=== PATIENT | male | born 1985 | race Caucasian/White ===

== ENCOUNTER 2017-02-14 13:22 | Emergency (ER) | payer MEDICAID ==
[2017-02-14 13:50] VITALS: BP 116/76
--- NOTE | 2017-02-14 15:22 | EDM.PDOC ---
[id number] 4d PAIN IN THE RIGHT LEG Time Seen by Provider: 02/14/17 13:55 Source: Reports: Patient History Limitations: Reports: Altered mental status (Patient seems manic) - History of Present Illness INITIAL COMMENTS - FREE TEXT/NARRATIVE: 31-year-old male presents with right leg pain. He claims years ago he sustained an injury to his right lower leg, and now has pain radiating up to behind his knee and into his thigh. He has increased his running recently and he thought that maybe be related. He is overly dramatic and talkative. He says he has used a bottle of Tylenol and a bottle of ibuprofen and nothing is helping. He claims his leg is red and swollen although it looks symmetric and normal. Occurred When: other (Supposedly a few years ago) Associated Symptoms: Reports: denies other symptoms Allergies/ADRs: Allergies No Known Allergies Allergy (Verified 02/14/17 13:53) Home Medications: Ambulatory Orders Dextroamphetamine/Amphetamine [Adderall 20 mg Tablet] 20 mg PO BID 02/14/17 [ Confirmed 02/14/17] Past Medical History Gastrointestinal History: Reports: Diverticulosis, GERD Psychiatric History: Reports: ADHD - Past Surgical History GI Surgical History: Reports: Hernia repair/other Social & Family History - Tobacco Use Smoking Status *Q: Current Some Day Smoker Years of Tobacco use: 20 Packs/Tins Daily: 2 - Caffeine Use Caffeine Use: Reports: Coffee, Soda - Recreational Drug Use Recreational Drug Use: No Review of Systems - Review of Systems Review Of Systems: See Below Constitutional: Denies: fever Respiratory: Denies: Shortness of Breath Cardiovascular: Denies: chest pain GI/Abdominal: Denies: Nausea, Vomiting Psychiatric: Reports: other (Patient is supposed to be on chronic amphetamines for his ADHD but has been off for the last 3 months and is going to "start his medicines tomorrow".) Trauma Exam - Physical Exam Exam: See Below Exam Limited By: Altered mental status (Patient is very agitated and having a hard time maintaining a thought process) General Appearance: Reports: alert, anxious Head: Reports: atraumatic Respiratory Exam: Reports: no respiratory distress Extremities: Reports: other (Exam of the lower extremities grossly reveals symmetric color and no acute injury. On palpation of the posterior aspect of the right thigh the patient screamed in pain and almost collapsed. He was significantly out of proportion to any physical disease.) Course - Vital Signs Last Recorded V/S: Last Vital Signs Temp 97.9 F 02/14/17 13:52 Pulse 90 02/14/17 13:52 Resp 15 02/14/17 13:52 BP 116/76 02/14/17 13:52 Pulse Ox 97 02/14/17 13:52 - Re-Assessments/Exams Free Text/Narrative Re-Assessment/Exam: 02/14/17 15:39 I tried to encourage the patient to give us more time and assured him it was not related to his injury several years ago. He started ranting about the dangers of vaccines, that was a dangerous doctor because I could not tell him what was in vaccines and that I wasn't going to help him because I just assumed he was a drug addict. I was straightforward with him and told him he presents as a patient that's either manic or an amphetamines. He said he would give me a drug screen but he "can't give a urine right now". When he started becoming argumentative he seemed to have no leg pain at all. He then demanded a physical therapy referral, so I was getting that arranged when he came out and demanded to leave. However after discharge while he was in the lobby he changed his mind and came in and wanted to give the drug screen to "prove me wrong". When I told him he was discharged and we did not need it anymore he raised his hands and yelled "I was right, Allah!" and left Departure - Departure Time of Disposition: 14:31 Disposition: Home, Self-Care 01 Condition: good Clinical Impression: Leg pain, right Referrals: PCP,None [Primary Care Provider] - Forms: ED Department Discharge Care Plan Goals: Activity as tolerated and recheck in 1 to 2 weeks if not improving
== END 2017-02-14 14:31 | disposition home or self-care (01) ==
LOC: JP.ED 13:22
DX: M79.604 Pain in right leg (principal); F17.210 Nicotine dependence, cigarettes, uncomplicated; K21.9 Gastro-esophageal reflux disease without esophagitis; F90.9 Attention-deficit hyperactivity disorder, unspecified type; Z79.899 Other long term (current) drug therapy
CPT/HCPCS: 99282; 99283

== ENCOUNTER 2017-02-20 14:57 | Emergency (ER) | payer MEDICAID ==
[2017-02-20 15:09] VITALS: BP 133/85
--- NOTE | 2017-02-20 15:26 | EDM.PDOC ---
ED HPI GENERAL MEDICAL PROBLEM - General Chief Complaint: ENT Problem Stated Complaint: RIGHT UPPER AND LOWER TOOTH PAIN Time Seen by Provider: 02/20/17 15:15 Source of Information: Reports: Patient, Family History Limitations: Reports: No Limitations - History of Present Illness INITIAL COMMENTS - FREE TEXT/NARRATIVE: pt is having severe pain in the rt lower gum line. He had a filling faLL OUT AND HE HAS SEVERE PAIN AT THIS TIME. Onset: gradual Duration: Day(s):, Getting worse Location: Reports: face Quality: Reports: Sharp, Stabbing Associated Symptoms: Reports: denies other symptoms - Related Data Allergies Allergy/AdvReac Type Severity Reaction Status Date / Time No Known Allergies Allergy Verified 02/14/17 13:53 Home Meds: Home Meds Dextroamphetamine/Amphetamine [Adderall 20 mg Tablet] 20 mg PO BID 02/14/17 [ History] Past Medical History Gastrointestinal History: Reports: Diverticulosis, GERD Psychiatric History: Reports: ADHD - Past Surgical History GI Surgical History: Reports: Hernia repair/other Social & Family History - Tobacco Use Smoking Status *Q: Current Some Day Smoker Years of Tobacco use: 20 Packs/Tins Daily: 2 - Caffeine Use Caffeine Use: Reports: Coffee, Soda - Recreational Drug Use Recreational Drug Use: No ED ROS ENT - Review of Systems Review Of Systems: See Below Constitutional: Reports: No Symptoms HEENT: Reports: Dental Pain Respiratory: Reports: No Symptoms Cardiovascular: Reports: No Symptoms Endocrine: Reports: No Symptoms GI/Abdominal: Reports: No Symptoms : Reports: No Symptoms ED EXAM, ENT - Physical Exam Exam: See Below Text/Narrative:: pT ARRIVED WI SEVERE AIXA RT LOWER GUM LINE. TH Exam Limited By: No Limitations General Appearance: Alert, Moderate Distress Ears: Normal TMs Nose: Normal Inspection Mouth/Throat: Other (pt has some very carious back teeth the wose appears to be the rt upper. He is having severe pain. ) Head: Atraumatic Neck: Normal Inspection Respiratory/Chest: No Respiratory Distress Course - Vital Signs Last Recorded V/S: Last Vital Signs Temp 36.7 C 02/20/17 15:08 Pulse 82 02/20/17 15:08 Resp 20 02/20/17 15:08 BP 133/85 02/20/17 15:08 Pulse Ox - Re-Assessments/Exams Free Text/Narrative Re-Assessment/Exam: 02/20/17 15:29 pt was given torodol 60mg im, He will have a dental referal. Departure - Departure Time of Disposition: 15:30 Disposition: Home, Self-Care 01 Condition: fair Clinical Impression: Pain, dental - Discharge Information Forms: ED Department Discharge Care Plan Goals: amoxicillin 500mg tid, motrin 600mg tid, norco 5/325 q6h prn for pain, dental referal for tomorrow.
[2017-02-20] MEDS ORDERED: Ketorolac 60 MG/2 ML SDV IM ONE (15:28)
== END 2017-02-20 15:42 | disposition home or self-care (01) ==
LOC: JP.ED 14:57
DX: K08.89 Other specified disorders of teeth and supporting structures (principal); K21.9 Gastro-esophageal reflux disease without esophagitis; F90.9 Attention-deficit hyperactivity disorder, unspecified type; F17.210 Nicotine dependence, cigarettes, uncomplicated
CPT/HCPCS: 96372; 99283; J1885

== ENCOUNTER 2017-10-24 14:26 | Emergency (ER) | payer MEDICAID ==
[2017-10-24 15:05] VITALS: BP 126/81
--- NOTE | 2017-10-24 15:39 | EDM.PDOC ---
ED HPI GENERAL MEDICAL PROBLEM - General Chief Complaint: Skin Complaint Stated Complaint: RASH Time Seen by Provider: 10/24/17 15:34 Source of Information: Reports: Patient History Limitations: Reports: No Limitations - History of Present Illness INITIAL COMMENTS - FREE TEXT/NARRATIVE: pt arrived with a rash on his rt side. He describes a burning pain connected to this. Several days ago he had sores in his mouth and They looked like canker sores. He has been off the lamictal for 1 week. H thought at first this could b a reaction to the lamictal. Onset: Gradual Duration: Day(s): Location: Reports: Face, Abdomen Associated Symptoms: Reports: Other (pt has pain on the rt side. ) denies Pain Score (Numeric/FACES): 0 - Related Data Allergies Allergy/AdvReac Type Severity Reaction Status Date / Time No Known Allergies Allergy Verified 10/24/17 15:16 Home Meds: Home Meds Dextroamphetamine/Amphetamine [Adderall 20 mg Tablet] 30 mg PO BID 02/14/17 [ History] Past Medical History Gastrointestinal History: Reports: Other (See Below) Other Gastrointestinal History: pyloric stenosis,diverticulitis Genitourinary History: Reports: Renal Calculus Psychiatric History: Reports: ADHD, Bipolar Dermatologic History: Reports: Psoriasis - Past Surgical History GI Surgical History: Reports: Hernia Repair/Other Male Surgical History: Reports: Kidney Stone Extraction Social & Family History - Tobacco Use Smoking Status *Q: Current Every Day Smoker Years of Tobacco use: 20 Packs/Tins Daily: 0.5 - Caffeine Use Caffeine Use: Reports: Coffee, Soda - Recreational Drug Use Recreational Drug Use: No ED ROS GENERAL - Review of Systems Review Of Systems: See Below Constitutional: Reports: No Symptoms HEENT: Reports: Other ( earlier pt had sores in the mouth. ) Respiratory: Reports: No Symptoms Cardiovascular: Reports: No Symptoms Endocrine: Reports: No Symptoms GI/Abdominal: Reports: No Symptoms : Reports: No Symptoms Musculoskeletal: Reports: No Symptoms Skin: Reports: Rash, Other ( There is slight blistering on the rt side. ) Neurological: Reports: No Symptoms ED EXAM, SKIN/RASH Exam: See Below Text/Narrative:: pt arrived with a rash on his rt side. He states he has burning pain. Exam Limited By: No Limitations General Appearance: Alert, Anxious, Mild Distress Ears: Normal TMs Nose: Normal Inspection Throat/Mouth: Normal Inspection Head: Atraumatic Neck: Normal Inspection Respiratory/Chest: No Respiratory Distress Cardiovascular: Regular Rate, Rhythm GI/Abdominal: Soft, Non-Tender Extremities: Normal Inspection Skin: Other ( veciular rash on the rt side. He earlier had sores in his mouth that looked like canker sores. ) Course - Vital Signs Last Recorded V/S: Last Vital Signs Temp 36.5 C 10/24/17 15:04 Pulse 84 10/24/17 15:04 Resp 16 10/24/17 15:04 BP 126/81 10/24/17 15:04 Pulse Ox 98 10/24/17 15:04 - Orders/Labs/Meds Labs: Laboratory Tests 10/24/17 10/24/17 Range/Units 15:23 15:23 WBC 9.9 (4.5-11.0) K/uL RBC 5.21 (4.30-5.90) M/uL Hgb 15.9 H (12.0-15.0) g/dL Hct 44.7 (40.0-54.0) % MCV 86 (80-98) fL MCH 31 (27-31) pg MCHC 36 (32-36) % Plt Count 232 (150-400) K/uL Neut % (Auto) 68 H (36-66) % Lymph % (Auto) 23 L (24-44) % Amador % (Auto) 7 H (2-6) % Eos % (Auto) 1 L (2-4) % Baso % (Auto) 0 (0-1) % Sodium 141 (140-148) mmol/L Potassium 4.0 (3.6-5.2) mmol/L Chloride 104 (100-108) mmol/L Carbon Dioxide 27 (21-32) mmol/L Anion Gap 10.3 (5.0-14.0) mmol/L BUN 11 (7-18) mg/dL Creatinine 0.9 (0.8-1.3) mg/dL Est Cr Clr Drug Dosing 122.79 mL/min Estimated GFR (MDRD) > 60 (>60) Glucose 92 (74-106) mg/dL Calcium 8.6 (8.5-10.1) mg/dL Total Bilirubin 0.4 (0.2-1.0) mg/dL AST 17 (15-37) U/L ALT 24 (12-78) U/L Alkaline Phosphatase 68 (46-116) U/L Total Protein 7.0 (6.4-8.2) g/dL Albumin 4.0 (3.4-5.0) g/dL Globulin 3.0 (2.3-3.5) g/dL Albumin/Globulin Ratio 1.3 (1.2-2.2) - Re-Assessments/Exams Free Text/Narrative Re-Assessment/Exam: 10/24/17 15:41 wbc is not elevated This certainly could be a viral rash and the sores in the mouth and the rash on the side could be connected. He has been off of lamictal for 1 week so I do not think it is connected. Departure - Departure Time of Disposition: 16:04 Disposition: Home, Self-Care 01 Condition: Fair Clinical Impression: Shingles rash - Discharge Information Referrals: PCP,None [Primary Care Provider] - Forms: ED Department Discharge Care Plan Goals: zovirax 400mg tid for 5 days. hold the lamictal cont to use benadryl for iritation
== END 2017-10-24 16:19 | disposition home or self-care (01) ==
LOC: JP.ED 14:26
DX: B02.9 Zoster without complications (principal); F17.210 Nicotine dependence, cigarettes, uncomplicated
CPT/HCPCS: 36415; 80053; 85025; 99283

== ENCOUNTER 2017-10-26 18:58 | Emergency (ER) | payer MEDICAID ==
[2017-10-26] MEDS ORDERED: Bacitracin Oint 1 GM U/D Packet TOP ONE (19:20)
[2017-10-26 19:30] VITALS: BP 133/87
--- NOTE | 2017-10-26 19:36 | EDM.PDOC ---
ED HPI GENERAL MEDICAL PROBLEM - General Chief Complaint: Laceration Stated Complaint: CAT ATTACKED PT/LT ARM Time Seen by Provider: 10/26/17 19:10 Source of Information: Reports: Patient History Limitations: Reports: No Limitations - History of Present Illness INITIAL COMMENTS - FREE TEXT/NARRATIVE: Patient was cut on the left arm along with superficial scratches from a cat. He has a laceration across the flexor surface of the left forearm that needs repair. Onset: Today Duration: Hour(s): - Related Data Allergies Allergy/AdvReac Type Severity Reaction Status Date / Time clotrimazole [From Lotrimin] Allergy Mouth Sores Verified 10/26/17 19:16 Home Meds: Home Meds Dextroamphetamine/Amphetamine [Adderall 20 mg Tablet] 30 mg PO BID 02/14/17 [ History] Acyclovir [Zovirax] 10/26/17 [History] Past Medical History Gastrointestinal History: Reports: Other (See Below) Other Gastrointestinal History: pyloric stenosis,diverticulitis Genitourinary History: Reports: Renal Calculus Psychiatric History: Reports: ADHD, Bipolar Dermatologic History: Reports: Psoriasis - Past Surgical History GI Surgical History: Reports: Hernia Repair/Other Male Surgical History: Reports: Kidney Stone Extraction Social & Family History - Tobacco Use Smoking Status *Q: Current Every Day Smoker Years of Tobacco use: 20 Packs/Tins Daily: 1 - Caffeine Use Caffeine Use: Reports: Coffee, Soda - Recreational Drug Use Recreational Drug Use: No ED ROS GENERAL - Review of Systems Review Of Systems: See Below (Within the last hour) Constitutional: Denies: Fever, Chills Respiratory: Denies: Shortness of Breath GI/Abdominal: Denies: Abdominal Pain Skin: Reports: Other (Patient is currently being treated for a viral skin eruption) ED EXAM, SKIN/RASH Exam: See Below Exam Limited By: No Limitations General Appearance: Alert, No Apparent Distress Respiratory/Chest: No Respiratory Distress Extremities: Other (Exam is otherwise limited to the left arm. The patient has several superficial scratches on the flexor surface of the arm, and a transverse 4 cm laceration that extends into the subcutaneous tissue.) Course - Vital Signs Last Recorded V/S: Last Vital Signs Temp 97.3 F 10/26/17 19:28 Pulse 93 10/26/17 19:28 Resp 12 01/14/18 19:28 BP 133/87 10/26/17 19:28 Pulse Ox 95 10/26/17 19:28 - Orders/Labs/Meds Meds: Medications Discontinued Medications Generic Name Dose Route Start Last Admin Trade Name Tavares PRN Reason Stop Dose Admin Bacitracin 1 dose 10/26/17 19:20 10/26/17 19:37 Bacitracin Oint 1 Gm TOP 10/26/17 19:21 1 dose ONETIME ONE Administration Lidocaine HCl 5 ml 10/26/17 19:20 10/26/17 19:37 Xylocaine-Mpf 1% INJECT 10/26/17 19:21 5 ml ONETIME ONE Administration - Re-Assessments/Exams Free Text/Narrative Re-Assessment/Exam: 10/26/17 19:47 The laceration was cleansed thoroughly with saline and Hibiclens, infiltrated with 1% lidocaine and 6 4-0 Ethilon sutures were used to close the laceration. These can be removed in 7 days. Patient was placed on Augmentin twice daily until sutures are removed. Departure - Departure Time of Disposition: 20:58 Disposition: Home, Self-Care 01 Condition: Good Clinical Impression: Laceration of arm Qualifiers: Encounter type: initial encounter Laterality: left Qualified Code(s): S41.112A - Laceration without foreign body of left upper arm, initial encounter - Discharge Information Instructions: Laceration Care, Adult, [id number] Referrals: PCP,None [Primary Care Provider] - Forms: ED Department Discharge Care Plan Goals: Keep wounds covered and clean while healing. Sutures can be removed in 8 days. Take antibiotic twice daily as prescribed until sutures are removed, and return sooner if concerns of infection or not healing satisfactorily.
== END 2017-10-26 20:59 | disposition home or self-care (01) ==
LOC: JP.ED 18:58
DX: S41.112A Laceration without foreign body of left upper arm, initial encounter (principal); Z88.8 Allergy status to other drugs, medicaments and biological substances; F17.210 Nicotine dependence, cigarettes, uncomplicated; W55.03XA Scratched by cat, initial encounter
CPT/HCPCS: 12002; 99282-25; 99283-25

== ENCOUNTER 2017-11-05 23:46 | Emergency (ER) | payer MEDICAID ==
[2017-11-05] MEDS ORDERED: Sodium Chloride 0.9% 10 ML Syringe FLUSH PRN (23:57)
[2017-11-06] MEDS ORDERED: hydrOXYzine HCl 25 MG Tab PO ONE (00:06)
--- NOTE | 2017-11-06 00:07 | EDM.PDOC ---
ED HPI GENERAL MEDICAL PROBLEM - General Chief Complaint: Neuro Symptoms/Deficits Stated Complaint: MEDICAL [facility]IA [facility] Time Seen by Provider: 11/05/17 23:50 Source of Information: Reports: Patient, EMS History Limitations: Reports: No Limitations - History of Present Illness INITIAL COMMENTS - FREE TEXT/NARRATIVE: 31 yo male presents via EMS after a witnessed seizure of about 1 minute duration. The witnesses did not come to the ER. There was no tongue biting or urinary incontinence. Robby recalls before the seizure having some double vision , dizziness, and felt hot-like he was having "hot flashes". Says he has never been tx'd with seizure meds, but thinks he had a couple prior seizures at age 6 and 10 yrs of age. His sister has epilepsy and is on meds. He has had minor head injuries in the past, but has never had one severe enough to require hospitalization. He denies alcohol use. Recently stopped oxcarbazepine(not taking for seizure prevention) due to an itchy rash that he has been dealing with for several days. Also takes a prescription amphetamine. Has ADD and ? bipolar depression. Now in the ER just feels warm. If he was post-ictal, it was resolved by the time EMS arrived. Has not been having any trouble with sleeping lately. Onset: Today, Sudden Onset Date: 11/05/17 Onset Time: 23:00 Duration: Minutes: (one minute per bystanders) Location: Reports: Generalized Quality: Reports: Other (tonic clonic) Severity: Moderate Improves with: Reports: Other (? time) Worsens with: Reports: Other (? stopping oxcarbazepine) Context: Reports: Other (thinks he had seizures yrs ago, FHx of epilepsy) Associated Symptoms: Reports: Seizure, Other (feels hot, double vision, dizzy. ) Treatments LAP REGULATOR: Reports: IV/IO, Other (see below) (none) Neck Pain Score (Numeric/FACES): 3 - Related Data Allergies Allergy/AdvReac Type Severity Reaction Status Date / Time clotrimazole [From Lotrimin] Allergy Mouth Sores Verified 10/26/17 19:16 Home Meds: Home Meds Dextroamphetamine/Amphetamine [Adderall 20 mg Tablet] 30 mg PO BID 02/14/17 [ History] Acyclovir [Zovirax] 01/14/18 [History] Past Medical History Gastrointestinal History: Reports: Other (See Below) Other Gastrointestinal History: pyloric stenosis,diverticulitis Genitourinary History: Reports: Renal Calculus Neurological History: Reports: Head Trauma, Seizure Psychiatric History: Reports: ADHD, Bipolar Dermatologic History: Reports: Psoriasis - Past Surgical History GI Surgical History: Reports: Hernia Repair/Other Male Surgical History: Reports: Kidney Stone Extraction Social & Family History - Tobacco Use Smoking Status *Q: Current Every Day Smoker Years of Tobacco use: 20 Packs/Tins Daily: 1 - Caffeine Use Caffeine Use: Reports: Coffee, Soda - Recreational Drug Use Recreational Drug Use: No ED ROS GENERAL - Review of Systems Review Of Systems: See Below Constitutional: Reports: No Symptoms HEENT: Reports: Vision Change (double vision intermittently) Respiratory: Reports: No Symptoms Cardiovascular: Reports: No Symptoms Endocrine: Reports: No Symptoms GI/Abdominal: Reports: No Symptoms : Reports: No Symptoms Musculoskeletal: Reports: No Symptoms Skin: Reports: Pruritis, Rash (for roughly a week, itchy, in patches in various locations on his body.) Neurological: Reports: Dizziness, Seizure Psychiatric: Reports: Other (Hx of ADD and ? bipolar ) - Physical Exam Exam: See Below Exam Limited By: No Limitations General Appearance: Alert, WD/WN, No Apparent Distress Eye Exam: Bilateral Eye: EOMI, Normal Inspection, PERRL Ears: Normal External Exam, Normal Canal, Hearing Grossly Normal, Normal TMs Nose: Normal Inspection, Normal Mucosa, No Blood Throat/Mouth: Normal Inspection, Normal Lips, Normal Oropharynx, Normal Voice, No Airway Compromise. No: Evidence of Tongue Biting Head Exam: Atraumatic, Normocephalic Neck: Normal Inspection Respiratory/Chest: No Respiratory Distress, Lungs Clear, Normal Breath Sounds, No Accessory Muscle Use Cardiovascular: Regular Rate, Rhythm, No Edema GI/Abdominal: Normal Bowel Sounds, Soft, Non-Tender, No Distention Neuro Exam (Abbreviated): Alert, Oriented, CN II-XII Intact, Normal Cognition, No Motor/Sensory Deficits Back Exam: Normal Inspection. No: CVA Tenderness (R), CVA Tenderness (L) Extremities: Normal Inspection, Normal Range of Motion, Non-Tender, No Pedal Edema Psychiatric: Normal Affect, Normal Mood Skin Exam: Warm, Dry, Intact, Normal Color, Rash (Scattered patches of a maculopapular rash, one patch is over the upper sacrum. Another on his R arm. ) . No: Diaphoretic, Ecchymosis, Erythema, Jaundice, Mottled, Petechiae, Wound/ Incision, Zoster-Like Rash Course - Vital Signs Text/Narrative:: hydroxyzine 50 mg po for pruritis. Saline lock Last Recorded V/S: Last Vital Signs Temp 36.2 C 11/05/17 23:55 Pulse 77 11/06/17 01:38 Resp 22 H 11/06/17 01:38 BP 122/80 11/06/17 01:38 Pulse Ox 95 11/06/17 01:38 - Orders/Labs/Meds Orders: Active Orders 24 hr Category Date Time Status Head wo Cont [CT] Stat Exams 11/06/17 00:05 Taken Sodium Chloride 0.9% [Saline Flush] Med 11/05/17 23:57 Active 10 ml FLUSH ASDIRECTED PRN Saline Lock Insert [OM.PC] Routine Oth 11/05/17 23:57 Ordered Medication Orders Sodium Chloride (Saline Flush) 10 ml FLUSH ASDIRECTED PRN PRN Reason: Keep Vein Open Labs: Laboratory Tests 11/05/17 11/05/17 11/06/17 Range/Units 23:55 23:59 01:14 WBC 10.3 (4.5-11.0) K/uL RBC 5.14 (4.30-5.90) M/uL Hgb 15.3 H (12.0-15.0) g/dL Hct 45.1 (40.0-54.0) % MCV 88 (80-98) fL MCH 30 (27-31) pg MCHC 34 (32-36) % Plt Count 236 (150-400) K/uL Sodium 144 (140-148) mmol/L Potassium 3.7 (3.6-5.2) mmol/L Chloride 106 (100-108) mmol/L Carbon Dioxide 28 (21-32) mmol/L Anion Gap 9.6 (5.0-14.0) mmol/L BUN 12 (7-18) mg/dL Creatinine 0.9 (0.8-1.3) mg/dL Est Cr Clr Drug Dosing 122.79 mL/min Estimated GFR (MDRD) > 60 (>60) Glucose 101 (74-106) mg/dL Calcium 8.5 (8.5-10.1) mg/dL Total Bilirubin 0.3 (0.2-1.0) mg/dL AST 12 L (15-37) U/L ALT 19 (12-78) U/L Alkaline Phosphatase 59 (46-116) U/L Total Protein 6.3 L (6.4-8.2) g/dL Albumin 3.6 (3.4-5.0) g/dL Globulin 2.7 (2.3-3.5) g/dL Albumin/Globulin Ratio 1.3 (1.2-2.2) Urine Color Yellow Urine Appearance Clear Urine pH 6.0 (4.5-8.0) Ur Specific [place] 1.020 (1.008-1.030) Urine Protein Negative (NEGATIVE) mg/dL Urine Glucose (UA) Normal (NEGATIVE) mg/dL Urine Ketones Negative (NEGATIVE) mg/dL Urine Occult Blood Negative (NEGATIVE) Urine Nitrite Negative (NEGAITVE) Urine Bilirubin Negative (NEGATIVE) Urine Urobilinogen Normal (NORMAL) mg/dL Ur Leukocyte Esterase Negative (NEGATIVE) Urine RBC Not seen (0-5) Urine WBC 0-5 (0-5) Ur Epithelial Cells Not seen Amorphous Sediment Few Urine Bacteria Not seen Urine Mucus Not seen Urine Opiates Screen (NEGATIVE) Ur Oxycodone Screen (NEGATIVE) Urine Methadone Screen (NEGATIVE) Ur Propoxyphene Screen (NEGATIVE) Ur Barbiturates Screen (NEGATIVE) Ur Tricyclics Screen (NEGATIVE) Ur Phencyclidine Scrn (NEGATIVE) Ur Amphetamine Screen (NEGATIVE) U Methamphetamines Scrn (NEGATIVE) Urine MDMA Screen (NEGATIVE) U Benzodiazepines Scrn (NEGATIVE) U Cocaine Metab Screen (NEGATIVE) U Marijuana (THC) Screen (NEGATIVE) 11/06/17 Range/Units 01:14 WBC (4.5-11.0) K/uL RBC (4.30-5.90) M/uL Hgb (12.0-15.0) g/dL Hct (40.0-54.0) % MCV (80-98) fL MCH (27-31) pg MCHC (32-36) % Plt Count (150-400) K/uL Sodium (140-148) mmol/L Potassium (3.6-5.2) mmol/L Chloride (100-108) mmol/L Carbon Dioxide (21-32) mmol/L Anion Gap (5.0-14.0) mmol/L BUN (7-18) mg/dL Creatinine (0.8-1.3) mg/dL Est Cr Clr Drug Dosing mL/min Estimated GFR (MDRD) (>60) Glucose (74-106) mg/dL Calcium (8.5-10.1) mg/dL Total Bilirubin (0.2-1.0) mg/dL AST (15-37) U/L ALT (12-78) U/L Alkaline Phosphatase (46-116) U/L Total Protein (6.4-8.2) g/dL Albumin (3.4-5.0) g/dL Globulin (2.3-3.5) g/dL Albumin/Globulin Ratio (1.2-2.2) Urine Color Urine Appearance Urine pH (4.5-8.0) Ur Specific [place] (1.008-1.030) Urine Protein (NEGATIVE) mg/dL Urine Glucose (UA) (NEGATIVE) mg/dL Urine Ketones (NEGATIVE) mg/dL Urine Occult Blood (NEGATIVE) Urine Nitrite (NEGAITVE) Urine Bilirubin (NEGATIVE) Urine Urobilinogen (NORMAL) mg/dL Ur Leukocyte Esterase (NEGATIVE) Urine RBC (0-5) Urine WBC (0-5) Ur Epithelial Cells Amorphous Sediment Urine Bacteria Urine Mucus Urine Opiates Screen Negative (NEGATIVE) Ur Oxycodone Screen Negative (NEGATIVE) Urine Methadone Screen Negative (NEGATIVE) Ur Propoxyphene Screen Negative (NEGATIVE) Ur Barbiturates Screen Negative (NEGATIVE) Ur Tricyclics Screen Negative (NEGATIVE) Ur Phencyclidine Scrn Negative (NEGATIVE) Ur Amphetamine Screen Positive H (NEGATIVE) U Methamphetamines Scrn Negative (NEGATIVE) Urine MDMA Screen Negative (NEGATIVE) U Benzodiazepines Scrn Negative (NEGATIVE) U Cocaine Metab Screen Negative (NEGATIVE) U Marijuana (THC) Screen Positive H (NEGATIVE) Meds: Medications Generic Name Dose Route Start Last Admin Trade Name Freq PRN Reason Stop Dose Admin Sodium Chloride 10 ml 11/05/17 23:57 Saline Flush FLUSH ASDIRECTED PRN Keep Vein Open Discontinued Medications Generic Name Dose Route Start Last Admin Trade Name Freq PRN Reason Stop Dose Admin Hydroxyzine HCl 50 mg 11/06/17 00:06 11/06/17 00:17 Atarax PO 11/06/17 00:07 50 mg ONETIME ONE Administration - Radiology Interpretation Free Text/Narrative:: Negative head CT scan CT Results Date: 11/06/17 CT Results Time: 01:10 Departure - Departure Time of Disposition: 01:55 Disposition: Home, Self-Care 01 Condition: Fair Clinical Impression: Seizure - Discharge Information Referrals: PCP,None [Primary Care Provider] - Forms: ED Department Discharge - My Orders Last 24 Hours: My Active Orders 11/05/17 23:57 Sodium Chloride 0.9% [Saline Flush] 10 ml FLUSH ASDIRECTED PRN Saline Lock Insert [OM.PC] Routine 11/06/17 00:05 Head wo Cont [CT] Stat - Assessment/Plan Last 24 Hours: My Active Orders 11/05/17 23:57 Sodium Chloride 0.9% [Saline Flush] 10 ml FLUSH ASDIRECTED PRN Saline Lock Insert [OM.PC] Routine 11/06/17 00:05 Head wo Cont [CT] Stat
[2017-11-06 01:39] VITALS: BP 122/80
== END 2017-11-06 02:08 | disposition home or self-care (01) ==
LOC: JP.ED 23:46
DX: R56.9 Unspecified convulsions (principal); F17.210 Nicotine dependence, cigarettes, uncomplicated; Z88.8 Allergy status to other drugs, medicaments and biological substances
CPT/HCPCS: 36415; 70450; 80053; 80305; 81001; 85027; 99284; A9270; 99283

== ENCOUNTER 2017-11-07 12:21 | Emergency (ER) | payer MEDICAID ==
[2017-11-07 12:40] VITALS: BP 136/79
--- NOTE | 2017-11-07 13:17 | EDM.PDOC ---
ED HPI GENERAL MEDICAL PROBLEM - General Chief Complaint: Skin Complaint Stated Complaint: RASH ON BACK AND ARMS Time Seen by Provider: 11/07/17 12:53 Source of Information: Reports: Patient, Old Records, RN Notes Reviewed History Limitations: Reports: No Limitations - History of Present Illness INITIAL COMMENTS - FREE TEXT/NARRATIVE: 31-year-old gentleman presents to the emergency department today complaint of a rash, he was evaluated by his psychiatrist today change of medication Dr. Marina had call me concern of drug eruption possibly related to recent medication change. He has been evaluated by his primary care provider who felt that he had psoriasis also seen by one of the emergency room providers here with the same diagnosis. He did try topical medium potency steroids unfortunately they cause significant pain and burning when he used them in did not complete the course. He has no other complaints other than the rash - Related Data Allergies Allergy/AdvReac Type Severity Reaction Status Date / Time clotrimazole [From Lotrimin] Allergy Mouth Sores Verified 11/07/17 12:40 Home Meds: Home Meds *Depakote 11/07/17 [History] Past Medical History Gastrointestinal History: Reports: Other (See Below) Other Gastrointestinal History: pyloric stenosis,diverticulitis Genitourinary History: Reports: Renal Calculus Neurological History: Reports: Head Trauma, Seizure Psychiatric History: Reports: ADHD, Bipolar Dermatologic History: Reports: Psoriasis - Past Surgical History GI Surgical History: Reports: Hernia Repair/Other Male Surgical History: Reports: Kidney Stone Extraction Social & Family History - Tobacco Use Smoking Status *Q: Heavy Tobacco Smoker Years of Tobacco use: 20 Packs/Tins Daily: 1 - Caffeine Use Caffeine Use: Reports: Coffee, Soda - Recreational Drug Use Recreational Drug Use: No ED ROS GENERAL - Review of Systems Review Of Systems: See Below Constitutional: Reports: No Symptoms Skin: Reports: Rash ED EXAM, SKIN/RASH Exam: See Below Text/Narrative:: Examination of the integument system there are 3 lesions that he's concerned about one on each forearm and one in the middle of his back they are silvery crusted no clear demarcation of the border is irregular slightly erythematous scaly and rough nontender to the touch Exam Limited By: No Limitations General Appearance: Alert, WD/WN, No Apparent Distress Course - Vital Signs Last Recorded V/S: Last Vital Signs Temp 97.1 F 11/07/17 12:38 Pulse 112 H 11/07/17 12:38 Resp 16 11/07/17 12:38 BP 136/79 11/07/17 12:38 Pulse Ox 98 11/07/17 12:38 Departure - Departure Time of Disposition: 13:15 Disposition: Home, Self-Care 01 Condition: Good Clinical Impression: Psoriasis - Discharge Information Referrals: PCP,None [Primary Care Provider] - Additional Instructions: Take full course of steroids, please follow-up with Dr. Diaz in 7-10 days, call return to the emergency department worsening of symptoms - Assessment/Plan Plan: Assessment Acuity = acute Site and laterality = psoriasis Etiology = unclear etiology Manifestations = none Location of injury = Home Lab values = none Plan Because he has had difficulty with the topical steroids in the past will try short course of prednisone 20 mg once a day for 5 days I have him follow-up with his primary care provider next 7-10 days for reevaluation This note was dictated using [employer] voice recognition software please call with any questions on syntax or karen.
== END 2017-11-07 13:45 | disposition home or self-care (01) ==
LOC: JP.ED 12:21
DX: L40.9 Psoriasis, unspecified (principal); F17.210 Nicotine dependence, cigarettes, uncomplicated; F90.9 Attention-deficit hyperactivity disorder, unspecified type; Z88.8 Allergy status to other drugs, medicaments and biological substances
CPT/HCPCS: 99283

== ENCOUNTER 2017-11-29 16:16 | Emergency (ER) | payer MEDICAID ==
[2017-11-29 16:24] VITALS: BP 135/70
[2017-11-29] MEDS ORDERED: LORazepam 1 MG Tab PO ONE (17:38)
--- NOTE | 2017-11-29 17:44 | EDM.PDOCBH ---
ED HPI GENERAL MEDICAL PROBLEM - General Chief Complaint: Behavioral/Psych Stated Complaint: SEIZURES Time Seen by Provider: 11/29/17 17:25 Source of Information: Reports: Patient, Old Records, RN History Limitations: Reports: No Limitations - History of Present Illness INITIAL COMMENTS - FREE TEXT/NARRATIVE: 31 yo male with bipolar depression is currently manic. He is scheduled to go to a psych facility possibly on Friday, but is hoping to get in sooner by coming here today. He is followed already by psychiatry. Mentions some chills at times and a rash. Not sleeping. Having problems with work and at home due to his current issues. Onset: Gradual Duration: Getting Worse, Waxing/Waning Location: Reports: Generalized Quality: Reports: Other (no pain) Severity: Moderate Improves with: Reports: None Worsens with: Reports: Other (? time) Context: Reports: Other (Hx of mental illness) Associated Symptoms: Reports: Fever/Chills (chills only, no fever. ), Rash ( diffuse, non-pruritic), Other (insomnia) Treatments CHANNEL SALES DIRECTOR: Reports: Other (see below) (Usual meds only) - Related Data Allergies Allergy/AdvReac Type Severity Reaction Status Date / Time clotrimazole [From Lotrimin] Allergy Mouth Sores Verified 11/07/17 12:40 Home Meds: Home Meds Amphetamine/Dextroamphetamine [Adderall XR] 2 tab PO DAILY 11/29/17 [History] Divalproex Sodium [Divalproex Sodium ER] 2 tab PO BEDTIME 11/29/17 [History] LORazepam 1 mg PO TID PRN #8 tablet 11/29/17 [Rx] traZODone HCl [Trazodone HCl] 1 tab PO BEDTIME 11/29/17 [History] Past Medical History Gastrointestinal History: Reports: Other (See Below) Other Gastrointestinal History: pyloric stenosis,diverticulitis Genitourinary History: Reports: Renal Calculus Neurological History: Reports: Head Trauma, Seizure Psychiatric History: Reports: ADHD, Bipolar Dermatologic History: Reports: Psoriasis - Past Surgical History GI Surgical History: Reports: Hernia Repair/Other Male Surgical History: Reports: Kidney Stone Extraction Social & Family History - Tobacco Use Smoking Status *Q: Current Every Day Smoker Years of Tobacco use: 20 Packs/Tins Daily: 1 - Caffeine Use Caffeine Use: Reports: Coffee, Soda - Recreational Drug Use Recreational Drug Use: No ED ROS GENERAL - Review of Systems Review Of Systems: See Below Constitutional: Reports: Chills. Denies: Fever HEENT: Reports: No Symptoms Respiratory: Reports: No Symptoms Cardiovascular: Reports: No Symptoms Endocrine: Reports: No Symptoms GI/Abdominal: Reports: No Symptoms : Reports: No Symptoms Musculoskeletal: Reports: No Symptoms Skin: Reports: Rash Neurological: Reports: No Symptoms Psychiatric: Reports: Anxiety, Mood Lability. Denies: Homicidal Ideation, Suicidal Ideation Hematologic/Lymphatic: Reports: No Symptoms ED EXAM, BEHAVIORAL HEALTH - Physical Exam Exam: See Below Exam Limited By: No Limitations General Appearance: Alert, WD/WN, No Apparent Distress, Anxious Eye Exam: Bilateral Eye: PERRL Ears: Normal External Exam, Normal Canal, Hearing Grossly Normal, Normal TMs Nose: Normal Inspection, Normal Mucosa, No Blood Throat/Mouth: Normal Inspection, Normal Lips, Normal Oropharynx, Normal Voice, No Airway Compromise Head: Atraumatic, Normocephalic Neck: Normal Inspection Respiratory/Chest: No Respiratory Distress, Lungs Clear, Normal Breath Sounds, No Accessory Muscle Use Cardiovascular: Regular Rate, Rhythm, No Edema GI/Abdominal: Normal Bowel Sounds, Soft, Non-Tender, No Distention Back Exam: Normal Inspection. No: CVA Tenderness (R), CVA Tenderness (L) Extremities: Normal Inspection, Normal Range of Motion, Non-Tender, No Pedal Edema Neurological: Alert, Normal Mood/Affect, CN II-XII Intact, Normal Cognition, No Motor/Sensory Deficits, Oriented x 3 Psychiatric: Alert, Normal Cognition, Oriented, Restless. No: Suicidal Plan Skin Exam: Warm, Dry, Intact, Normal color, Other (there are a few scattered excoriations, no raised lesions. ) COURSE, BEHAVIORAL HEALTH COMP - Course Vital Signs: Last Vital Signs Temp 36.9 C 11/29/17 16:41 Pulse 90 11/29/17 16:41 Resp 26 H 11/29/17 16:41 BP 135/70 11/29/17 16:41 Pulse Ox 95 11/29/17 16:41 Orders, Labs, Meds: Laboratory Tests 11/29/17 11/29/17 Range/Units 17:50 18:36 WBC 9.3 (4.5-11.0) K/uL RBC 5.59 (4.30-5.90) M/uL Hgb 16.5 H (12.0-15.0) g/dL Hct 48.4 (40.0-54.0) % MCV 87 (80-98) fL MCH 30 (27-31) pg MCHC 34 (32-36) % Plt Count 241 (150-400) K/uL Urine Opiates Screen Negative (NEGATIVE) Ur Oxycodone Screen Negative (NEGATIVE) Urine Methadone Screen Negative (NEGATIVE) Ur Propoxyphene Screen Negative (NEGATIVE) Ur Barbiturates Screen Negative (NEGATIVE) Ur Tricyclics Screen Negative (NEGATIVE) Ur Phencyclidine Scrn Negative (NEGATIVE) Ur Amphetamine Screen Positive H (NEGATIVE) U Methamphetamines Scrn Negative (NEGATIVE) Urine MDMA Screen Negative (NEGATIVE) U Benzodiazepines Scrn Negative (NEGATIVE) U Cocaine Metab Screen Negative (NEGATIVE) U Marijuana (THC) Screen Positive H (NEGATIVE) Medications Discontinued Medications Generic Name Dose Route Start Last Admin Trade Name Freq PRN Reason Stop Dose Admin Lorazepam 1 mg 11/29/17 17:38 11/29/17 18:03 Ativan PO 11/29/17 17:39 1 mg ONETIME ONE Administration Departure - Departure Time of Disposition: 18:52 Disposition: Home, Self-Care 01 Condition: Fair Clinical Impression: Hypomania - Discharge Information Prescriptions: LORazepam 1 mg PO TID PRN #8 tablet PRN Reason: Anxiety Referrals: PCP,None [Primary Care Provider] - Forms: ED Department Discharge
== END 2017-11-29 18:59 | disposition home or self-care (01) ==
LOC: JP.ED 16:16
DX: F30.8 Other manic episodes (principal); F90.9 Attention-deficit hyperactivity disorder, unspecified type; F17.210 Nicotine dependence, cigarettes, uncomplicated; Z88.8 Allergy status to other drugs, medicaments and biological substances; Z79.899 Other long term (current) drug therapy
CPT/HCPCS: 36415; 80305; 85027; 99285; A9270

== ENCOUNTER 2017-12-06 06:54 | Emergency (ER) | payer MEDICAID ==
[2017-12-06 07:20] VITALS: BP 157/87
[2017-12-06] MEDS ORDERED: LORazepam 0.5 MG Tab PO ONE (07:47)
--- NOTE | 2017-12-06 07:47 | EDM.PDOC ---
ED HPI GENERAL MEDICAL PROBLEM - General Chief Complaint: General Stated Complaint: SEIZURE Time Seen by Provider: 12/06/17 07:42 Source of Information: Reports: Patient History Limitations: Reports: No Limitations - History of Present Illness INITIAL COMMENTS - FREE TEXT/NARRATIVE: pt states that he had multiple seizures during the nite. He did not chew his tongue and he did not loose continence. He is concerned about the rash that he has which appears after he showers. He has very little rash at this time. He seemes quite agitated at this time. He states since he was put on the trazadone he has been resting better but he did not sleep last nite because he was having seizures. He does feel more relaxed at this point and thinks he could go home and rest. Onset: Other (He had seizures all nite according to the pt. ) Duration: Hour(s): Location: Reports: Other ( he does develop a total body rash after he takes a shower) Associated Symptoms: Reports: Rash - Related Data Allergies Allergy/AdvReac Type Severity Reaction Status Date / Time clotrimazole [From Lotrimin] Allergy Mouth Sores Verified 12/06/17 07:20 Home Meds: Home Meds Amphetamine/Dextroamphetamine [Adderall XR] 1 tab PO BIDAC 11/29/17 [History] Divalproex Sodium [Divalproex Sodium ER] 2 tab PO BEDTIME 11/29/17 [History] LORazepam 1 mg PO TID PRN #8 tablet 11/29/17 [Rx] traZODone HCl [Trazodone HCl] 1 tab PO BEDTIME 11/29/17 [History] Past Medical History Gastrointestinal History: Reports: Other (See Below) Other Gastrointestinal History: pyloric stenosis,diverticulitis Genitourinary History: Reports: Renal Calculus Neurological History: Reports: Head Trauma, Seizure Psychiatric History: Reports: ADHD, Bipolar Dermatologic History: Reports: Psoriasis - Past Surgical History GI Surgical History: Reports: Hernia Repair/Other Male Surgical History: Reports: Kidney Stone Extraction Social & Family History - Tobacco Use Smoking Status *Q: Unknown Ever Smoked Years of Tobacco use: 20 Packs/Tins Daily: 1 Second Hand Smoke Exposure: No - Caffeine Use Caffeine Use: Reports: Coffee, Soda - Recreational Drug Use Recreational Drug Use: No ED ROS GENERAL - Review of Systems Review Of Systems: See Below Constitutional: Reports: No Symptoms HEENT: Reports: No Symptoms Respiratory: Reports: No Symptoms Cardiovascular: Reports: No Symptoms Endocrine: Reports: No Symptoms GI/Abdominal: Reports: No Symptoms : Reports: No Symptoms Musculoskeletal: Reports: No Symptoms Skin: Reports: Rash, Other ( This appears after showering) Neurological: Reports: Other ( Pt appears very anxious and is talking rapidly) Psychiatric: Reports: Anxiety ED EXAM, GENERAL - Physical Exam Exam: See Below Free Text/Narrative:: PT DID APPEAR AMXIOUS BUT HE STATED HE WAS DEFINITELY bETTER THAN LAST NITE. hE DID HAVE A DEPAKOTE LEVEL DONE WHICH WAS THARAPEUTIC AND i DID ADVISE HIM THAT HE MAY NOT NEED TO MAKE FURTHER INCREASES. hE NEEDS TO FOLLOW UP WITH [facility]. Exam Limited By: No Limitations General Appearance: Anxious, Other (PT DID HAVE SIG ANXIETY. PUPILS EQUAL AND REACTIVE. ) Ears: Normal TMs Nose: Normal Inspection Throat/Mouth: Normal Inspection, Other (PT DID NOT CHEW HIS TONGUE. ) Head: Atraumatic Neck: Normal Inspection Respiratory/Chest: No Respiratory Distress Cardiovascular: Regular Rate, Rhythm, Tachycardia GI/Abdominal: Soft, Non-Tender (Male) Exam: Deferred, Other (PT WAS NOT INCONTINENT. ) Rectal (Males) Exam: Deferred Extremities: Normal Inspection Neurological: Alert, Oriented, Normal Cognition Psychiatric: Normal Affect Course - Vital Signs Last Recorded V/S: Last Vital Signs Temp 36.1 C 12/06/17 07:08 Pulse 97 12/06/17 07:08 Resp 21 H 12/06/17 07:08 BP 157/87 H 12/06/17 07:08 Pulse Ox 97 12/06/17 07:08 - Orders/Labs/Meds Labs: Laboratory Tests 12/06/17 12/06/17 12/06/17 Range/Units 07:32 07:32 07:32 WBC 9.1 (4.5-11.0) K/uL RBC 5.33 (4.30-5.90) M/uL Hgb 16.0 H (12.0-15.0) g/dL Hct 46.0 (40.0-54.0) % MCV 86 (80-98) fL MCH 30 (27-31) pg MCHC 35 (32-36) % Plt Count 223 (150-400) K/uL Neut % (Auto) 70 H (36-66) % Lymph % (Auto) 18 L (24-44) % [place] % (Auto) 10 H (2-6) % Eos % (Auto) 2 (2-4) % Baso % (Auto) 0 (0-1) % Sodium 140 (140-148) mmol/L Potassium 4.2 (3.6-5.2) mmol/L Chloride 104 (100-108) mmol/L Carbon Dioxide 29 (21-32) mmol/L Anion Gap 7.2 (5.0-14.0) mmol/L BUN 13 (7-18) mg/dL Creatinine 0.9 (0.8-1.3) mg/dL Est Cr Clr Drug Dosing 122.79 mL/min Estimated GFR (MDRD) > 60 (>60) Glucose 95 (74-106) mg/dL Calcium 8.9 (8.5-10.1) mg/dL Total Bilirubin 0.4 (0.2-1.0) mg/dL AST 11 L (15-37) U/L ALT 17 (12-78) U/L Alkaline Phosphatase 65 (46-116) U/L Total Protein 7.2 (6.4-8.2) g/dL Albumin 4.0 (3.4-5.0) g/dL Globulin 3.2 (2.3-3.5) g/dL Albumin/Globulin Ratio 1.3 (1.2-2.2) Urine Color Urine Appearance Urine pH (4.5-8.0) Ur Specific [place] (1.008-1.030) Urine Protein (NEGATIVE) mg/dL Urine Glucose (UA) (NEGATIVE) mg/dL Urine Ketones (NEGATIVE) mg/dL Urine Occult Blood (NEGATIVE) Urine Nitrite (NEGAITVE) Urine Bilirubin (NEGATIVE) Urine Urobilinogen (NORMAL) mg/dL Ur Leukocyte Esterase (NEGATIVE) Urine RBC (0-5) Urine WBC (0-5) Ur Epithelial Cells Amorphous Sediment Urine Bacteria Urine Mucus Urine Opiates Screen (NEGATIVE) Ur Oxycodone Screen (NEGATIVE) Urine Methadone Screen (NEGATIVE) Ur Propoxyphene Screen (NEGATIVE) Ur Barbiturates Screen (NEGATIVE) Valproic Acid (50.0-100.0) ug/mL Ur Tricyclics Screen (NEGATIVE) Ur Phencyclidine Scrn (NEGATIVE) Ur Amphetamine Screen (NEGATIVE) U Methamphetamines Scrn (NEGATIVE) Urine MDMA Screen (NEGATIVE) U Benzodiazepines Scrn (NEGATIVE) U Cocaine Metab Screen (NEGATIVE) U Marijuana (THC) Screen (NEGATIVE) Ethyl Alcohol < 3 mg/dL 12/06/17 12/06/17 12/06/17 Range/Units 07:39 08:17 08:25 WBC (4.5-11.0) K/uL RBC (4.30-5.90) M/uL Hgb (12.0-15.0) g/dL Hct (40.0-54.0) % MCV (80-98) fL MCH (27-31) pg MCHC (32-36) % Plt Count (150-400) K/uL Neut % (Auto) (36-66) % Lymph % (Auto) (24-44) % [place] % (Auto) (2-6) % Eos % (Auto) (2-4) % Baso % (Auto) (0-1) % Sodium (140-148) mmol/L Potassium (3.6-5.2) mmol/L Chloride (100-108) mmol/L Carbon Dioxide (21-32) mmol/L Anion Gap (5.0-14.0) mmol/L BUN (7-18) mg/dL Creatinine (0.8-1.3) mg/dL Est Cr Clr Drug Dosing mL/min Estimated GFR (MDRD) (>60) Glucose (74-106) mg/dL Calcium (8.5-10.1) mg/dL Total Bilirubin (0.2-1.0) mg/dL AST (15-37) U/L ALT (12-78) U/L Alkaline Phosphatase (46-116) U/L Total Protein (6.4-8.2) g/dL Albumin (3.4-5.0) g/dL Globulin (2.3-3.5) g/dL Albumin/Globulin Ratio (1.2-2.2) Urine Color Yellow Urine Appearance Cloudy Urine pH 5.0 (4.5-8.0) Ur Specific [place] 1.025 (1.008-1.030) Urine Protein Negative (NEGATIVE) mg/dL Urine Glucose (UA) Normal (NEGATIVE) mg/dL Urine Ketones 15 H (NEGATIVE) mg/dL Urine Occult Blood Negative (NEGATIVE) Urine Nitrite Negative (NEGAITVE) Urine Bilirubin Negative (NEGATIVE) Urine Urobilinogen 1 (NORMAL) mg/dL Ur Leukocyte Esterase Negative (NEGATIVE) Urine RBC 0-5 (0-5) Urine WBC 0-5 (0-5) Ur Epithelial Cells Rare Amorphous Sediment Not seen Urine Bacteria Not seen Urine Mucus Many Urine Opiates Screen Negative (NEGATIVE) Ur Oxycodone Screen Negative (NEGATIVE) Urine Methadone Screen Negative (NEGATIVE) Ur Propoxyphene Screen Negative (NEGATIVE) Ur Barbiturates Screen Negative (NEGATIVE) Valproic Acid 67.4 (50.0-100.0) ug/mL Ur Tricyclics Screen Negative (NEGATIVE) Ur Phencyclidine Scrn Negative (NEGATIVE) Ur Amphetamine Screen Positive H (NEGATIVE) U Methamphetamines Scrn Negative (NEGATIVE) Urine MDMA Screen Negative (NEGATIVE) U Benzodiazepines Scrn Negative (NEGATIVE) U Cocaine Metab Screen Negative (NEGATIVE) U Marijuana (THC) Screen Positive H (NEGATIVE) Ethyl Alcohol mg/dL Meds: Medications Discontinued Medications Generic Name Dose Route Start Last Admin Trade Name Tavares PRN Reason Stop Dose Admin Lorazepam 0.5 mg 12/06/17 07:47 12/06/17 07:53 Ativan PO 12/06/17 07:48 0.5 mg ONETIME ONE Administration - Re-Assessments/Exams Free Text/Narrative Re-Assessment/Exam: 12/06/17 08:35 PT HAD NO FURTHER EPISODES OF SEIZURE LIKE ACTIVITY HERE IN er. hE STATED HE FELT MUCH BETTER. hE THOUGHT HE COULD GO HOME AND REST. hIS DEPAKOTE LEVEL WAS THERAPEUTIC. hE HAD NORMAL LABS OTHERWISE hIS DRUG SCREEN WAS POSITIVE FOR MARAJAUNA. hE TALKED ALOT ABOUT THE RASH THAT APPEARS AFTER SHOWERING. hE WILL HAVE A DERMATOLOGY REFERAL. 12/06/17 08:36 Departure - Departure Time of Disposition: 08:26 Disposition: Home, Self-Care 01 Condition: Fair Clinical Impression: Anxiety, Seizure disorder, Rash and nonspecific skin eruption - Discharge Information Instructions: Panic Attacks, [id number], Seizure, Adult, Rash, [id number] Referrals: PCP,None [Primary Care Provider] - Forms: ED Department Discharge Care Plan Goals: keep appt with [facility], ativan .5 1 taB IF PT STARTS HAVING SeIZURE LIKE ACTIVITY, REFERAL TO DERMATOLGY, CONT OTHER MEDS.
== END 2017-12-06 08:54 | disposition home or self-care (01) ==
LOC: JP.ED 06:54
DX: G40.909 Epilepsy, unspecified, not intractable, without status epilepticus (principal); F41.9 Anxiety disorder, unspecified; R21 Rash and other nonspecific skin eruption; F31.9 Bipolar disorder, unspecified; Z72.0 Tobacco use; Z88.8 Allergy status to other drugs, medicaments and biological substances
CPT/HCPCS: 36415; 80053; 80164; 80305; 81001; 85025; 87081; 87430; 99285; A9270; G0480

== ENCOUNTER 2017-12-23 08:24 | Emergency (ER) | payer MEDICAID ==
[2017-12-23 08:40] VITALS: BP 136/54
--- NOTE | 2017-12-23 09:09 | EDM.PDOC ---
ED HPI GENERAL MEDICAL PROBLEM - General Chief Complaint: Abdominal Pain Stated Complaint: STOMACH PAIN Time Seen by Provider: 12/23/17 08:45 Source of Information: Reports: Patient History Limitations: Reports: No Limitations - History of Present Illness INITIAL COMMENTS - FREE TEXT/NARRATIVE: 32-year-old male with intermittent abdominal pain for the past week, worse over the last 12-24 hours. Pain is in the upper abdomen, epigastric area and somewhat into the right upper quadrant. Some radiation of discomfort to the back. He's had a lot of uncomfortable "burping" with an acid taste. He has a history of diverticulitis. No fevers or chills, no shortness of breath or cough. He has no pain currently. Onset: Unknown/Unsure Location: Reports: Abdomen Quality: Reports: Ache, Burning Severity: Moderate Worsens with: Reports: Eating (Seems to be worse after eating) Associated Symptoms: Reports: Rash (Patient has been struggling with a somewhat chronic waxing and waning rash) Abdominal Pain Score (Numeric/FACES): 3 - Related Data Allergies Allergy/AdvReac Type Severity Reaction Status Date / Time clotrimazole [From Lotrimin] Allergy Mouth Sores Verified 12/06/17 07:20 Home Meds: Home Meds Divalproex Sodium [Divalproex Sodium ER] 1,500 mg PO BEDTIME 11/29/17 [History] Past Medical History Gastrointestinal History: Reports: Diverticulosis, Other (See Below) Other Gastrointestinal History: pyloric stenosis,diverticulitis Genitourinary History: Reports: Renal Calculus Neurological History: Reports: Head Trauma, Seizure Psychiatric History: Reports: ADHD, Bipolar Dermatologic History: Reports: Psoriasis - Infectious Disease History Infectious Disease History: Reports: Chicken Pox - Past Surgical History GI Surgical History: Reports: Hernia Repair/Other Male Surgical History: Reports: Kidney Stone Extraction Social & Family History - Tobacco Use Smoking Status *Q: Current Every Day Smoker Years of Tobacco use: 20 Packs/Tins Daily: 1 Second Hand Smoke Exposure: No - Caffeine Use Caffeine Use: Reports: Soda - Recreational Drug Use Recreational Drug Use: Yes Recreational Drug Type: Reports: Marijuana/Hashish Recreational Drug Use Frequency: Rarely ED ROS GENERAL - Review of Systems Review Of Systems: See Below Constitutional: Denies: Fever, Chills, Malaise, Night Sweats HEENT: Reports: No Symptoms Respiratory: Denies: Shortness of Breath, Cough Cardiovascular: Denies: Chest Pain GI/Abdominal: Reports: Abdominal Pain, Other (Light colored stools). Denies: Constipation, Diarrhea, Difficulty Swallowing, Distension : Reports: No Symptoms Musculoskeletal: Reports: No Symptoms Skin: Reports: Rash Psychiatric: Reports: Other (Recent medication changes for his bipolar disorder , now only on valproic acid) ED EXAM, GI/ABD - Physical Exam Exam: See Below Exam Limited By: No Limitations General Appearance: Alert, No Apparent Distress Eyes: Bilateral: Normal Appearance (No jaundice) Throat/Mouth: Normal Inspection Head: Atraumatic Respiratory/Chest: No Respiratory Distress, Lungs Clear Cardiovascular: Regular Rate, Rhythm GI/Abdominal Exam: Soft, Tender (Small amount of tenderness to palpation across the upper abdomen but no focal pain or guarding) Extremities: Normal Inspection Neurological: Alert, Oriented Psychiatric: Normal Affect, Normal Mood. No: Anxious Skin Exam: Warm, Dry, Other (Very faint papular rash across the back) Course - Vital Signs Last Recorded V/S: Last Vital Signs Temp 97.7 F 12/23/17 08:42 Pulse 100 12/23/17 08:42 Resp 18 12/23/17 08:42 BP 136/54 L 12/23/17 08:42 Pulse Ox 97 12/23/17 08:42 - Orders/Labs/Meds Labs: Laboratory Tests 12/23/17 12/23/17 Range/Units 09:06 09:06 WBC 10.2 (4.5-11.0) K/uL RBC 5.33 (4.30-5.90) M/uL Hgb 15.8 H (12.0-15.0) g/dL Hct 46.9 (40.0-54.0) % MCV 88 (80-98) fL MCH 30 (27-31) pg MCHC 34 (32-36) % Plt Count 199 (150-400) K/uL Neut % (Auto) 70 H (36-66) % Lymph % (Auto) 21 L (24-44) % [place] % (Auto) 7 H (2-6) % Eos % (Auto) 3 (2-4) % Baso % (Auto) 0 (0-1) % Sodium 146 (140-148) mmol/L Potassium 4.5 (3.6-5.2) mmol/L Chloride 106 (100-108) mmol/L Carbon Dioxide 31 (21-32) mmol/L Anion Gap 9.0 (5.0-14.0) mmol/L BUN 10 (7-18) mg/dL Creatinine 0.9 (0.8-1.3) mg/dL Est Cr Clr Drug Dosing 121.67 mL/min Estimated GFR (MDRD) > 60 (>60) Glucose 91 (74-106) mg/dL Calcium 8.3 L (8.5-10.1) mg/dL Total Bilirubin 0.2 (0.2-1.0) mg/dL AST 14 L (15-37) U/L ALT 24 (12-78) U/L Alkaline Phosphatase 58 (46-116) U/L Total Protein 6.9 (6.4-8.2) g/dL Albumin 3.7 (3.4-5.0) g/dL Globulin 3.2 (2.3-3.5) g/dL Albumin/Globulin Ratio 1.2 (1.2-2.2) Amylase 89 (25-115) U/L Lipase 138 (73-393) U/L Valproic Acid 75.4 (50.0-100.0) ug/mL - Re-Assessments/Exams Free Text/Narrative Re-Assessment/Exam: 12/23/17 09:09 This certainly doesn't present as diverticulitis, however gallbladder disease could be present. This also may just be acid reflux. A CBC, CMP, amylase and lipase were obtained, as well as a Depakote level. 12/23/17 09:36 All labs are normal. Valproic acid level is right in the middle of therapeutic range. I'm going to start the patient on Prilosec 20 mg daily and he can recheck in the next 7-10 days if not improving satisfactorily. He can return at any time if worsening despite treatment. Departure - Departure Time of Disposition: 09:42 Disposition: Home, Self-Care 01 Condition: Good Clinical Impression: Abdominal pain Qualifiers: Abdominal location: upper abdomen, unspecified Qualified Code(s): R10.10 - Upper abdominal pain, unspecified Acid reflux Qualifiers: Esophagitis presence: esophagitis presence not specified Qualified Code(s): K21.9 - Gastro-esophageal reflux disease without esophagitis - Discharge Information Instructions: Gastroesophageal Reflux Disease, Adult, [id number] Referrals: Victor Hugo Diaz MD [Primary Care Provider] - Forms: ED Department Discharge Care Plan Goals: Continue her Depakote as prescribed. Take 1 dose of omeprazole 20 mg every day for at least the next 10-14 days. Continue as needed for symptoms. Recheck in 10 -14 days if not improving satisfactorily, or return sooner if worsening despite treatment.
== END 2017-12-23 09:42 | disposition home or self-care (01) ==
LOC: JP.ED 08:24
DX: K21.9 Gastro-esophageal reflux disease without esophagitis (principal); F17.210 Nicotine dependence, cigarettes, uncomplicated; Z88.8 Allergy status to other drugs, medicaments and biological substances
CPT/HCPCS: 36415; 80053; 80164; 82150; 83690; 85025; 99284

== ENCOUNTER 2017-12-24 06:50 | Emergency (ER) | payer MEDICAID ==
--- NOTE | 2017-12-24 07:53 | EDM.PDOC ---
ED HPI GENERAL MEDICAL PROBLEM - General Chief Complaint: Abdominal Pain Stated Complaint: STOMACH PAIN Time Seen by Provider: 12/24/17 07:25 Source of Information: Reports: Patient History Limitations: Reports: Other (Patient seems agitated today, somewhat manic) - History of Present Illness INITIAL COMMENTS - FREE TEXT/NARRATIVE: 32-year-old male seen for the second in a row with abdominal pain. He has been seen at the clinic as well. They felt he may have celiac disease so he's been trying a gluten-free diet which she thinks has made things "worse". I saw him yesterday and did quite a few labs which were all reassuring, and I tried to start him on Prilosec daily but is back today because we obviously "miss something". Last night he rolled over and felt like something tore in his upper abdomen, now whenever he lays over on his side he has increased pain. No vomiting. No significant radiation of pain to his back or elsewhere. No fevers or chills. He is demanding to figure out what is wrong or he will declan. Onset: Unknown/Unsure Location: Reports: Abdomen Quality: Reports: Sharp, Stabbing Severity: Moderate Improves with: Reports: Other (Lying still seems to help) Worsens with: Reports: Movement Associated Symptoms: Reports: Other (Complaining of light colored stools with intermittent bloody stools.) abdominal pain Pain Score (Numeric/FACES): 6 - Related Data Allergies Allergy/AdvReac Type Severity Reaction Status Date / Time clotrimazole [From Lotrimin] Allergy Mouth Sores Verified 12/06/17 07:20 Home Meds: Home Meds Divalproex Sodium [Divalproex Sodium ER] 1,500 mg PO BEDTIME 11/29/17 [History] Past Medical History Gastrointestinal History: Reports: Diverticulosis, Other (See Below) Other Gastrointestinal History: pyloric stenosis,diverticulitis Genitourinary History: Reports: Renal Calculus Neurological History: Reports: Head Trauma, Seizure Psychiatric History: Reports: ADHD, Bipolar Dermatologic History: Reports: Psoriasis - Infectious Disease History Infectious Disease History: Reports: Chicken Pox - Past Surgical History GI Surgical History: Reports: Hernia Repair/Other Male Surgical History: Reports: Kidney Stone Extraction Social & Family History - Family History Family Medical History: Noncontributory - Tobacco Use Smoking Status *Q: Current Every Day Smoker Years of Tobacco use: 25 Packs/Tins Daily: 0.5 Second Hand Smoke Exposure: No - Caffeine Use Caffeine Use: Reports: Soda - Recreational Drug Use Recreational Drug Use: Yes Recreational Drug Type: Reports: Marijuana/Hashish Recreational Drug Use Frequency: Rarely ED ROS GENERAL - Review of Systems Review Of Systems: See Below Constitutional: Reports: Malaise. Denies: Fever, Chills HEENT: Reports: No Symptoms Respiratory: Denies: Shortness of Breath, Cough Cardiovascular: Denies: Chest Pain GI/Abdominal: Reports: Abdominal Pain. Denies: Nausea : Denies: Dysuria, Flank Pain, Urgency Skin: Reports: Rash Psychiatric: Reports: Anxiety, Mood Lability ED EXAM, GI/ABD - Physical Exam Exam: See Below Exam Limited By: Other (Somewhat agitated today, I'm not sure he is reliable with his history) General Appearance: Other (Hyper dramatic, anxious) Eyes: Bilateral: Normal Appearance (No jaundice) Head: Atraumatic Respiratory/Chest: No Respiratory Distress, Lungs Clear Cardiovascular: Regular Rate, Rhythm GI/Abdominal Exam: Normal Bowel Sounds, Tender (Hard to examine because any palpation over the entire abdomen causes him to wince and roll around with pain) Neurological: Alert Psychiatric: Anxious Skin Exam: Warm, Dry Course - Vital Signs Last Recorded V/S: Last Vital Signs Temp 96.6 F 12/24/17 10:35 Pulse 71 12/24/17 10:35 Resp 16 12/24/17 10:35 BP 103/49 L 12/24/17 10:35 Pulse Ox 97 12/24/17 10:35 - Orders/Labs/Meds Orders: Active Orders 24 hr Category Date Time Status INES TEST [RM] Routine Lab 12/24/17 10:00 Received Labs: Laboratory Tests 12/24/17 12/24/17 12/24/17 Range/Units 07:44 07:45 07:57 ESR 0 (0-20) mm/hr C-Reactive Protein (0.0-0.3) mg/dL Urine Color Yellow Urine Appearance Cloudy Urine pH 9.0 H (4.5-8.0) Ur Specific [place] 1.015 (1.008-1.030) Urine Protein Negative (NEGATIVE) mg/dL Urine Glucose (UA) Normal (NEGATIVE) mg/dL Urine Ketones Negative (NEGATIVE) mg/dL Urine Occult Blood Negative (NEGATIVE) Urine Nitrite Negative (NEGAITVE) Urine Bilirubin Negative (NEGATIVE) Urine Urobilinogen Normal (NORMAL) mg/dL Ur Leukocyte Esterase Negative (NEGATIVE) Urine RBC Not seen (0-5) Urine WBC 0-5 (0-5) Ur Epithelial Cells Not seen Amorphous Sediment Many Urine Bacteria Not seen Urine Mucus Not seen Urine Opiates Screen Negative (NEGATIVE) Ur Oxycodone Screen Negative (NEGATIVE) Urine Methadone Screen Negative (NEGATIVE) Ur Propoxyphene Screen Negative (NEGATIVE) Ur Barbiturates Screen Negative (NEGATIVE) Ur Tricyclics Screen Negative (NEGATIVE) Ur Phencyclidine Scrn Negative (NEGATIVE) Ur Amphetamine Screen Negative (NEGATIVE) U Methamphetamines Scrn Negative (NEGATIVE) Urine MDMA Screen Negative (NEGATIVE) U Benzodiazepines Scrn Negative (NEGATIVE) U Cocaine Metab Screen Negative (NEGATIVE) U Marijuana (THC) Screen Positive H (NEGATIVE) 12/24/17 Range/Units 07:57 ESR (0-20) mm/hr C-Reactive Protein 0.15 (0.0-0.3) mg/dL Urine Color Urine Appearance Urine pH (4.5-8.0) Ur Specific [place] (1.008-1.030) Urine Protein (NEGATIVE) mg/dL Urine Glucose (UA) (NEGATIVE) mg/dL Urine Ketones (NEGATIVE) mg/dL Urine Occult Blood (NEGATIVE) Urine Nitrite (NEGAITVE) Urine Bilirubin (NEGATIVE) Urine Urobilinogen (NORMAL) mg/dL Ur Leukocyte Esterase (NEGATIVE) Urine RBC (0-5) Urine WBC (0-5) Ur Epithelial Cells Amorphous Sediment Urine Bacteria Urine Mucus Urine Opiates Screen (NEGATIVE) Ur Oxycodone Screen (NEGATIVE) Urine Methadone Screen (NEGATIVE) Ur Propoxyphene Screen (NEGATIVE) Ur Barbiturates Screen (NEGATIVE) Ur Tricyclics Screen (NEGATIVE) Ur Phencyclidine Scrn (NEGATIVE) Ur Amphetamine Screen (NEGATIVE) U Methamphetamines Scrn (NEGATIVE) Urine MDMA Screen (NEGATIVE) U Benzodiazepines Scrn (NEGATIVE) U Cocaine Metab Screen (NEGATIVE) U Marijuana (THC) Screen (NEGATIVE) Meds: Medications Discontinued Medications Generic Name Dose Route Start Last Admin Trade Name Freq PRN Reason Stop Dose Admin Fentanyl Confirm 12/24/17 09:47 Sublimaze Administered 12/24/17 09:48 Dose 100 mcg .ROUTE .STK-MED ONE Sodium Chloride 77 mls @ 3.5 mls/sec 12/24/17 08:45 12/24/17 08:58 Normal Saline IV 12/25/17 08:46 3.5 mls/sec ASDIRECTED ROMEO Administration Iopamidol 122 ml 12/24/17 08:42 12/24/17 08:58 Isovue-300 (61%) IV 12/25/17 08:43 122 ml . DIRECTED PRN Administration RADIOLOGY EXAM Midazolam HCl Confirm 12/24/17 09:47 Versed 1 Mg/Ml Administered 12/24/17 09:48 Dose 2 mg .ROUTE .STK-MED ONE Ondansetron HCl 4 mg 12/24/17 08:21 12/24/17 08:27 Zofran IVPUSH 12/24/17 08:22 4 mg ONETIME ONE Administration Pantoprazole Sodium 40 mg 12/24/17 10:35 12/24/17 10:46 Protonix Iv IVPUSH 12/24/17 10:36 40 mg ONETIME ONE Administration Propofol Confirm 12/24/17 09:47 Diprivan 20 Ml Administered 12/24/17 09:48 Dose 200 mg .ROUTE .STK-MED ONE Propofol Confirm 12/24/17 10:06 Diprivan 20 Ml Administered 12/24/17 10:07 Dose 200 mg .ROUTE .STK-MED ONE Sodium Chloride 10 ml 12/24/17 08:42 12/24/17 08:57 Saline Flush FLUSH 12/25/17 08:43 10 ml ONETIME PRN Administration per radiology protocol - Re-Assessments/Exams Free Text/Narrative Re-Assessment/Exam: 12/24/17 07:55 Stool guaiac was obtained which was negative, the rectum was basically empty. A UA will be obtained for analysis and drug screen. CRP and sedimentation rate will be added to the labs that were drawn yesterday. A gallbladder ultrasound was ordered. 12/24/17 08:22 UA was normal, urine drug screen again positive for marijuana. CRP was normal. Gallbladder ultrasound was completely normal, however the patient is very nauseated and had emesis when he returned from his ultrasound. An IV was started and he was given 4 mg of IV Zofran which will be followed by a contrast abdomen and pelvis CT. 12/24/17 10:[address] was normal other than some distal gastric edema. Dr. Mondragon then took the patient back for an EGD where he performed biopsies and recommended protein pump inhibitor treatment pending biopsies. After recovery the patient was given 40 mg of IV Protonix. Told to continue with the Prilosec as prescribed and recheck with doctor Resendiz next week. I also strongly encouraged him to avoid marijuana as it may be complicating his symptoms. Departure - Departure Time of Disposition: 11:38 Disposition: Home, Self-Care 01 Condition: Good Clinical Impression: Abdominal pain Qualifiers: Abdominal location: upper abdomen, unspecified Qualified Code(s): R10.10 - Upper abdominal pain, unspecified - Discharge Information Instructions: Gastritis, Adult, [id number] Referrals: PCP,None [Primary Care Provider] - Forms: ED Department Discharge Care Plan Goals: Return to a regular diet as tolerated, take Prilosec as directed except 2 doses the first 3 days, and recheck with doctor Resendiz next week.
[2017-12-24] MEDS ORDERED: Ondansetron 4 MG/2 ML SDV IVPUSH ONE (08:21)
[2017-12-24] MEDS ORDERED: Iopamidol 612 MG/ML 150 ML Bottle IV PRN (08:42)
[2017-12-24] MEDS ORDERED: Sodium Chloride 0.9% 10 ML Syringe FLUSH PRN (08:42)
--- NOTE | 2017-12-24 08:57 | US ---
Abdomen Ltd HISTORY: Abdominal pain. COMPARISON: CT scan of the abdomen dated 06/23/2007 FINDINGS: Liver demonstrates uniform echogenicity no focal mass seen. Gallbladder demonstrates no gal lstones no gallbladder wall thickening. The common bile duct measures 4 mm. No free fluid collections . The pancreas, right kidney, inferior vena cava appear normal. No ascites. Impression: Normal right upper quadrant ultrasound.
--- NOTE | 2017-12-24 09:44 | CT ---
Abdomen Pelvis w Cont HISTORY: Mid abdominal pain. Dose: Total DLP 544. COMPARISON: CT scan 06/23/2007. FINDINGS: Fairly pronounced gastric wall thickening or edema in the mid and distal stomach best seen on coronal image 23 and axial image 50. This is nonspecific may represent nonspecific gastritis.. The liver, spleen, pancreas, adrenal glands and abdominal aorta appear normal. Kidneys demonstrate no hy dronephrosis. There is no bowel obstruction. No free air. There are multiple diverticula throughout t he colon no evidence for diverticulitis. No free fluid. Impression: 1. Fairly pronounced thickening of the mid and distal aspect of the stomach likely representing nonsp ecific gastritis. Patient is scheduled for a EGD.
[2017-12-24] MEDS ORDERED: Midazolam 1 MG/ML 2 ML SDV ONE (09:47)
[2017-12-24] MEDS ORDERED: fentaNYL 100 MCG/2 ML SDV ONE (09:47)
[2017-12-24] MEDS ORDERED: Propofol 200 MG/20 ML SDV ONE ×2 (09:47→10:06)
[2017-12-24] MEDS ORDERED: Pantoprazole 40 MG Vial IVPUSH ONE (10:35)
[2017-12-24 10:36] VITALS: BP 103/49
--- NOTE | 2017-12-24 11:55 | OR ---
DATE OF PROCEDURE: 12/24/2017 PREOPERATIVE DIAGNOSES: Abdominal pain, vomiting, and thickened antrum. POSTOPERATIVE DIAGNOSES: Abdominal pain, vomiting, thickened antrum, gastritis, and gastroesophageal reflux disease. PROCEDURES: Esophagogastroduodenoscopy with biopsy of antrum for CLOtest and for pathology to look for Helicobacter pylori, biopsy of gastroesophageal junction. SURGEON: Elvis Mondragon MD ANESTHESIA: IV anesthesia with monitored anesthesia care. INDICATION: This 32-year-old white male developed abdominal pain with nausea and vomiting. He presented to the ER yesterday. Laboratory studies were all unremarkable. He was offered proton pump inhibitor. He presented today saying, if anything, he is worse. He underwent a CAT scan, which showed a markedly thickened antrum. A request was made for upper endoscopy. I counseled him for this including risks and alternatives, and he gave his informed consent to proceed. DESCRIPTION OF PROCEDURE: The patient was placed in the left lateral decubitus position. IV anesthesia was administered by the Anesthesia Service. Time-out was held. The flexible video Olympus upper endoscope was passed through his mouth, down his esophagus, and into his stomach. The scope was easily passed through the pylorus, into the duodenum, reaching its third portion. The scope was slowly withdrawn, examining the mucosa throughout. The duodenal mucosa appeared unremarkable. The scope was brought up through the pylorus. The antrum was markedly abnormal with evidence of inflammation. There were areas of blackened tissue possibly from Pepto-Bismol that he took this morning. The scope was retroflexed. The proximal stomach appeared unremarkable. The scope was straightened. We obtained multiple biopsies of the antrum for CLOtest and sent for pathology to look for Helicobacter pylori. The scope was brought up to the GE junction. This was abnormal, and the Z-line was not straight, and there was evidence of chronic inflammation. We obtained multiple, totalling at least 6, biopsies of the gastroesophageal junction. The scope was then brought proximal through the remainder of the esophagus, which otherwise appeared unremarkable and it was removed. He tolerated the procedure well. Elvis Mondragon MD /[id number]
== END 2017-12-24 11:30 | disposition home or self-care (01) ==
LOC: JP.ED 06:50
DX: R10.10 Upper abdominal pain, unspecified (principal); F17.210 Nicotine dependence, cigarettes, uncomplicated
CPT/HCPCS: 36415; 43239; 74177; 76705; 80305; 81001; 82272; 85651; 86140; 87081; 88305; 88312; 88342; 96374; 96375; 99284; C9113; J2250; J2405; J2704; J3010; J7030; J7050

== ENCOUNTER 2017-12-28 12:00 | Emergency (ER) | payer MEDICAID ==
[2017-12-28 12:37] VITALS: BP 143/77
--- NOTE | 2017-12-28 13:31 | EDM.PDOCBH ---
ED HPI GENERAL MEDICAL PROBLEM - General Chief Complaint: Abdominal Pain Stated Complaint: ABD PAIN Time Seen by Provider: 12/28/17 13:05 Source of Information: Reports: Patient History Limitations: Reports: Altered Mental Status, Other (Patient is behaving in somewhat of a manic state) - History of Present Illness INITIAL COMMENTS - FREE TEXT/NARRATIVE: 32-year-old male that I have seen several times over the past few weeks for persistent abdominal pain. His workup has been negative other than some apparent edema or swelling at the distal aspect of the stomach on CT scan. This was followed however by an EGD which showed reflux and gastritis, biopsies were obtained. He was started on omeprazole and was supposed to follow-up in 5-7 days but he seems obsessed with this discomfort because of his active bipolar manic state. He complains of abdominal pain but when he starts to ramble and talk about all his symptoms it doesn't seem to be bothering him. He has an old prescription for sulfasalazine and he would like to resume this. Onset: Unknown/Unsure Severity: Mild Abdomen Pain Score (Numeric/FACES): 3 - Related Data Allergies Allergy/AdvReac Type Severity Reaction Status Date / Time clotrimazole [From Lotrimin] Allergy Mouth Sores Verified 12/28/17 13:15 Home Meds: Home Meds Divalproex Sodium [Divalproex Sodium ER] 1,500 mg PO BEDTIME 11/29/17 [History] Omeprazole [Omeprazole] 20 mg PO DAILY 12/28/17 [History] Past Medical History Gastrointestinal History: Reports: Diverticulosis, GERD, Other (See Below) Other Gastrointestinal History: pyloric stenosis,diverticulitis Genitourinary History: Reports: Renal Calculus Neurological History: Reports: Head Trauma, Seizure Psychiatric History: Reports: ADHD, Bipolar Dermatologic History: Reports: Psoriasis - Infectious Disease History Infectious Disease History: Reports: Chicken Pox - Past Surgical History GI Surgical History: Reports: Colonoscopy, EGD, Hernia Repair/Other Male Surgical History: Reports: Kidney Stone Extraction Social & Family History - Family History Family Medical History: Noncontributory - Tobacco Use Smoking Status *Q: Current Every Day Smoker Years of Tobacco use: 25 Packs/Tins Daily: 0.5 Second Hand Smoke Exposure: No - Caffeine Use Caffeine Use: Reports: Soda - Recreational Drug Use Recreational Drug Use: Yes Recreational Drug Type: Reports: Marijuana/Hashish Recreational Drug Use Frequency: Rarely ED ROS GENERAL - Review of Systems Review Of Systems: See Below Constitutional: Denies: Fever, Chills HEENT: Denies: Throat Pain Respiratory: Denies: Shortness of Breath Cardiovascular: Denies: Chest Pain GI/Abdominal: Reports: Abdominal Pain. Denies: Nausea, Vomiting : Reports: No Symptoms Skin: Reports: Rash (His rash seems to be improving) Psychiatric: Reports: Other (His bipolar is active, patient is moderately manic today.) ED EXAM, BEHAVIORAL HEALTH - Physical Exam Exam: See Below Exam Limited By: Other (Inconsistent history because of his manic state) General Appearance: Alert, No Apparent Distress, Anxious Respiratory/Chest: No Respiratory Distress, Lungs Clear Cardiovascular: Regular Rate, Rhythm GI/Abdominal: Tender, Other (Difficult to examine the abdomen because although he appears to be comfortable any palpation even lightly causes him to wince with discomfort inconsistent with true physical pain) COURSE, BEHAVIORAL HEALTH COMP - Course Vital Signs: Last Vital Signs Temp 96.4 F 12/28/17 12:43 Pulse 94 12/28/17 12:43 Resp 18 12/28/17 12:43 BP 143/77 H 12/28/17 12:43 Pulse Ox 100 12/28/17 12:43 Re-Assessment/Re-Exam: Patient has an old prescription for sulfasalazine which he used to take for his "colitis". He did feel better on that when he took it, however I find no evidence of an ongoing chronic inflammatory process with his full workup I did on him last week. It would be harmless to try this again, and I gave him a prescription for 10 days at 500 mg 3 times a day and he is rechecking with his primary doctor in 2 days. Departure - Departure Time of Disposition: 14:00 Disposition: Home, Self-Care 01 Condition: Fair Clinical Impression: Abdominal pain Qualifiers: Abdominal location: upper abdomen, unspecified Qualified Code(s): R10.10 - Upper abdominal pain, unspecified Bipolar disorder Qualifiers: Active/Remission status: currently active Current bipolar episode type: hypomanic Qualified Code(s): F31.0 - Bipolar disorder, current episode hypomanic - Discharge Information Instructions: Bipolar 1 Disorder Referrals: Victor Hugo Diaz MD [Primary Care Provider] - Forms: ED Department Discharge Care Plan Goals: Continue your current medications and start sulfasalazine 3 times a day as directed. See Dr. Resendzi in the next several days to discuss any further treatment.
== END 2017-12-28 13:30 | disposition home or self-care (01) ==
LOC: JP.ED 12:00
DX: R10.10 Upper abdominal pain, unspecified (principal); F31.0 Bipolar disorder, current episode hypomanic; F17.210 Nicotine dependence, cigarettes, uncomplicated; K21.9 Gastro-esophageal reflux disease without esophagitis; Z79.899 Other long term (current) drug therapy; Z88.8 Allergy status to other drugs, medicaments and biological substances
CPT/HCPCS: 99284

== ENCOUNTER 2017-12-30 11:10 | Emergency (ER) | payer MEDICAID ==
[2017-12-30 11:31] VITALS: BP 135/85
--- NOTE | 2017-12-30 12:11 | EDM.PDOCBH ---
ED HPI GENERAL MEDICAL PROBLEM - General Chief Complaint: Behavioral/Psych Stated Complaint: EVAL/SUICIDAL IDEATION Time Seen by Provider: 12/30/17 12:03 Source of Information: Reports: Patient, RN Notes Reviewed History Limitations: Reports: No Limitations - History of Present Illness INITIAL COMMENTS - FREE TEXT/NARRATIVE: 32-year-old gentleman presents to the emergency department day complaint of suicidal ideation, he was initially evaluated by his primary care provider in clinic and sent to the emergency department for further evaluation. He admits to having bipolar disease he has chronic pain symptoms with headache and abdominal pain he states that he wishes to harm himself he has multiple plans in place to complete the process. He is admits that he has not been hospitalized for this, however he has been hospitalized for chemical dependency Abdominal Pain Score (Numeric/FACES): 8 - Related Data Allergies Allergy/AdvReac Type Severity Reaction Status Date / Time clotrimazole [From Lotrimin] Allergy Mouth Sores Verified 12/28/17 13:15 Home Meds: Home Meds Divalproex Sodium [Divalproex Sodium ER] 1,500 mg PO BEDTIME 11/29/17 [History] Omeprazole [Omeprazole] 20 mg PO DAILY 12/28/17 [History] Past Medical History Gastrointestinal History: Reports: Diverticulosis, GERD, Other (See Below) Other Gastrointestinal History: pyloric stenosis,diverticulitis, states he has chrons disease Genitourinary History: Reports: Renal Calculus Neurological History: Reports: Head Trauma, Seizure Psychiatric History: Reports: ADHD, Bipolar Dermatologic History: Reports: Psoriasis - Infectious Disease History Infectious Disease History: Reports: Chicken Pox - Past Surgical History GI Surgical History: Reports: Colonoscopy, EGD, Hernia Repair/Other Male Surgical History: Reports: Kidney Stone Extraction Social & Family History - Family History Family Medical History: Noncontributory - Tobacco Use Smoking Status *Q: Heavy Tobacco Smoker Years of Tobacco use: 28 Packs/Tins Daily: 0.5 Second Hand Smoke Exposure: No - Caffeine Use Caffeine Use: Reports: Soda - Recreational Drug Use Recreational Drug Use: Yes Recreational Drug Type: Reports: Marijuana/Hashish Recreational Drug Use Frequency: Rarely ED ROS GENERAL - Review of Systems Review Of Systems: See Below Constitutional: Reports: No Symptoms HEENT: Reports: No Symptoms Respiratory: Reports: No Symptoms Cardiovascular: Reports: No Symptoms GI/Abdominal: Reports: Abdominal Pain (Chronic) Musculoskeletal: Reports: No Symptoms Skin: Reports: No Symptoms Neurological: Reports: Headache (Daily) Psychiatric: Reports: Depression, Suicidal Ideation. Denies: Hallucinations, Homicidal Ideation, Mood Lability ED EXAM, BEHAVIORAL HEALTH - Physical Exam Exam: See Below Exam Limited By: No Limitations General Appearance: Alert, WD/WN, No Apparent Distress Respiratory/Chest: No Respiratory Distress, Lungs Clear, Normal Breath Sounds, No Accessory Muscle Use Cardiovascular: Regular Rate, Rhythm, No Murmur GI/Abdominal: Soft, Non-Tender Psychiatric: Alert, Poor Eye Contact, Withdrawn, Suicidal Plan, Suicidal Thoughts. No: Flight of Ideas, Homicidal Thoughts, Oriental Orthodox Delusions, Auditory Hallucinations, Visual Hallucinations, Grandiose Thoughts, Pressured Speech, Paranoid Thoughts, Threatening Behavior COURSE, BEHAVIORAL HEALTH COMP - Course Vital Signs: Last Vital Signs Temp 97.9 F 12/30/17 11:33 Pulse 89 12/30/17 11:33 Resp 15 12/30/17 11:33 BP 135/85 12/30/17 11:33 Pulse Ox 97 12/30/17 11:33 Orders, Labs, Meds: Laboratory Tests 12/30/17 12/30/17 12/30/17 Range/Units 12:14 12:14 12:14 WBC 9.2 (4.5-11.0) K/uL RBC 5.12 (4.30-5.90) M/uL Hgb 15.3 H (12.0-15.0) g/dL Hct 45.0 (40.0-54.0) % MCV 88 (80-98) fL MCH 30 (27-31) pg MCHC 34 (32-36) % Plt Count 216 (150-400) K/uL Neut % (Auto) 73 H (36-66) % Lymph % (Auto) 19 L (24-44) % [place] % (Auto) 7 H (2-6) % Eos % (Auto) 1 L (2-4) % Baso % (Auto) 0 (0-1) % Sodium 144 (140-148) mmol/L Potassium 4.5 (3.6-5.2) mmol/L Chloride 107 (100-108) mmol/L Carbon Dioxide 30 (21-32) mmol/L Anion Gap 7.5 (5.0-14.0) mmol/L BUN 12 (7-18) mg/dL Creatinine 0.9 (0.8-1.3) mg/dL Est Cr Clr Drug Dosing 121.67 mL/min Estimated GFR (MDRD) > 60 (>60) Glucose 85 (74-106) mg/dL Calcium 8.4 L (8.5-10.1) mg/dL Total Bilirubin 0.2 (0.2-1.0) mg/dL AST 12 L (15-37) U/L ALT 22 (12-78) U/L Alkaline Phosphatase 56 (46-116) U/L Total Protein 6.8 (6.4-8.2) g/dL Albumin 3.6 (3.4-5.0) g/dL Globulin 3.2 (2.3-3.5) g/dL Albumin/Globulin Ratio 1.1 L (1.2-2.2) TSH, Ultra Sensitive 0.940 (0.358-3.740) uIU/mL Urine Color Urine Appearance Urine pH (4.5-8.0) Ur Specific [place] (1.008-1.030) Urine Protein (NEGATIVE) mg/dL Urine Glucose (UA) (NEGATIVE) mg/dL Urine Ketones (NEGATIVE) mg/dL Urine Occult Blood (NEGATIVE) Urine Nitrite (NEGAITVE) Urine Bilirubin (NEGATIVE) Urine Urobilinogen (NORMAL) mg/dL Ur Leukocyte Esterase (NEGATIVE) Urine RBC (0-5) Urine WBC (0-5) Ur Epithelial Cells Amorphous Sediment Urine Bacteria Urine Mucus Urine Opiates Screen (NEGATIVE) Ur Oxycodone Screen (NEGATIVE) Urine Methadone Screen (NEGATIVE) Ur Propoxyphene Screen (NEGATIVE) Ur Barbiturates Screen (NEGATIVE) Ur Tricyclics Screen (NEGATIVE) Ur Phencyclidine Scrn (NEGATIVE) Ur Amphetamine Screen (NEGATIVE) U Methamphetamines Scrn (NEGATIVE) Urine MDMA Screen (NEGATIVE) U Benzodiazepines Scrn (NEGATIVE) U Cocaine Metab Screen (NEGATIVE) U Marijuana (THC) Screen (NEGATIVE) Ethyl Alcohol mg/dL 12/30/17 12/30/17 12/30/17 Range/Units 12:14 12:22 12:22 WBC (4.5-11.0) K/uL RBC (4.30-5.90) M/uL Hgb (12.0-15.0) g/dL Hct (40.0-54.0) % MCV (80-98) fL MCH (27-31) pg MCHC (32-36) % Plt Count (150-400) K/uL Neut % (Auto) (36-66) % Lymph % (Auto) (24-44) % [place] % (Auto) (2-6) % Eos % (Auto) (2-4) % Baso % (Auto) (0-1) % Sodium (140-148) mmol/L Potassium (3.6-5.2) mmol/L Chloride (100-108) mmol/L Carbon Dioxide (21-32) mmol/L Anion Gap (5.0-14.0) mmol/L BUN (7-18) mg/dL Creatinine (0.8-1.3) mg/dL Est Cr Clr Drug Dosing mL/min Estimated GFR (MDRD) (>60) Glucose (74-106) mg/dL Calcium (8.5-10.1) mg/dL Total Bilirubin (0.2-1.0) mg/dL AST (15-37) U/L ALT (12-78) U/L Alkaline Phosphatase (46-116) U/L Total Protein (6.4-8.2) g/dL Albumin (3.4-5.0) g/dL Globulin (2.3-3.5) g/dL Albumin/Globulin Ratio (1.2-2.2) TSH, Ultra Sensitive (0.358-3.740) uIU/mL Urine Color Yellow Urine Appearance Slightly cloudy Urine pH 8.0 (4.5-8.0) Ur Specific [place] 1.015 (1.008-1.030) Urine Protein Negative (NEGATIVE) mg/dL Urine Glucose (UA) Normal (NEGATIVE) mg/dL Urine Ketones 15 H (NEGATIVE) mg/dL Urine Occult Blood Negative (NEGATIVE) Urine Nitrite Negative (NEGAITVE) Urine Bilirubin Negative (NEGATIVE) Urine Urobilinogen Normal (NORMAL) mg/dL Ur Leukocyte Esterase Negative (NEGATIVE) Urine RBC Not seen (0-5) Urine WBC 0-5 (0-5) Ur Epithelial Cells Few Amorphous Sediment Few Urine Bacteria Not seen Urine Mucus Moderate Urine Opiates Screen Negative (NEGATIVE) Ur Oxycodone Screen Negative (NEGATIVE) Urine Methadone Screen Negative (NEGATIVE) Ur Propoxyphene Screen Negative (NEGATIVE) Ur Barbiturates Screen Negative (NEGATIVE) Ur Tricyclics Screen Negative (NEGATIVE) Ur Phencyclidine Scrn Negative (NEGATIVE) Ur Amphetamine Screen Negative (NEGATIVE) U Methamphetamines Scrn Negative (NEGATIVE) Urine MDMA Screen Negative (NEGATIVE) U Benzodiazepines Scrn Negative (NEGATIVE) U Cocaine Metab Screen Negative (NEGATIVE) U Marijuana (THC) Screen Positive H (NEGATIVE) Ethyl Alcohol < 3 mg/dL Medications Discontinued Medications Generic Name Dose Route Start Last Admin Trade Name Freq PRN Reason Stop Dose Admin Diphenhydramine HCl 50 mg 12/30/17 13:28 12/30/17 13:37 Benadryl IM 12/30/17 13:29 50 mg ONETIME ONE Administration Haloperidol Lactate 5 mg 12/30/17 13:28 12/30/17 13:36 Haldol IM 12/30/17 13:29 5 mg ONETIME ONE Administration Lorazepam 2 mg 12/30/17 13:28 12/30/17 13:36 Ativan IM 12/30/17 13:29 2 mg ONETIME ONE Administration Re-Assessment/Re-Exam: When his shoes and foam were taken away, sedation was provided with 2 mg Ativan , 5 mg Haldol and 50 mg Benadryl Departure - Departure Time of Disposition: 17:40 Disposition: DC/Tfer to Psych Hosp/Unit 65 Condition: Fair Clinical Impression: Suicidal ideations - Discharge Information Referrals: Victor Hugo Diaz MD [Primary Care Provider] - Forms: ED Department Discharge - Assessment/Plan Plan: Assessment Acuity = acute Site and laterality = suicidal ideation with the plan Etiology = unclear etiology Manifestations = agitation Location of injury = Home Lab values = CBC, CMP, thyroid, urinalysis unremarkable urine drug screen positive for cannabis alcohol is negative Plan Acceptance was obtained at [facility] in [facility] , Dr. Hernandez kindly accepted the patient will be transported via psychiatric transport. He is not on a hold as he has expressed willingness to go for treatment This note was dictated using [employer] voice recognition software please call with any questions on syntax or karen.
[2017-12-30] MEDS ORDERED: diphenhydrAMINE 50 MG/ML SDV IM ONE ×2 (13:28→19:03)
[2017-12-30] MEDS ORDERED: Haloperidol Lactate 5 MG/ML SDV IM ONE ×2 (13:28→19:02)
[2017-12-30] MEDS ORDERED: LORazepam 2 MG/ML SDV IM ONE ×2 (13:28→19:03)
[2017-12-30] MEDS ORDERED: Haloperidol Lactate 5 MG/ML SDV ONE ×2 (19:04→19:06)
[2017-12-30] MEDS ORDERED: LORazepam 2 MG/ML SDV ONE (19:05)
== END 2017-12-30 19:32 ==
LOC: JP.ED 11:10
DX: R45.851 Suicidal ideations (principal); F17.210 Nicotine dependence, cigarettes, uncomplicated; K21.9 Gastro-esophageal reflux disease without esophagitis; Z79.899 Other long term (current) drug therapy; Z88.8 Allergy status to other drugs, medicaments and biological substances; S00.01XA Abrasion of scalp, initial encounter; W19.XXXA Unspecified fall, initial encounter
CPT/HCPCS: 36415; 80053; 80305; 81001; 84443; 85025; 96372; 99285; G0480; J1200; J1630; J2060

== ENCOUNTER 2017-12-30 19:52 | Emergency (ER) | payer MEDICAID ==
[2017-12-30 19:55] VITALS: BP 113/73
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
[2017-12-31] MEDS ORDERED: Haloperidol Lactate 5 MG/ML SDV IM ONE (07:24)
[2017-12-31] MEDS ORDERED: diphenhydrAMINE 50 MG/ML SDV IM ONE (07:24)
[2017-12-31] MEDS ORDERED: LORazepam 2 MG/ML SDV IM ONE (07:24)
== END 2017-12-31 07:35 ==
LOC: JP.ED 19:52
DX: S00.01XA Abrasion of scalp, initial encounter (principal); R45.851 Suicidal ideations; F17.210 Nicotine dependence, cigarettes, uncomplicated; Z88.8 Allergy status to other drugs, medicaments and biological substances; Z79.899 Other long term (current) drug therapy; W19.XXXA Unspecified fall, initial encounter
CPT/HCPCS: 96372; 99285-25

== ENCOUNTER 2018-02-14 20:45 | Emergency (ER) | payer MEDICAID ==
[2018-02-14] MEDS ORDERED: Ketorolac 60 MG/2 ML SDV IM ONE (20:51)
[2018-02-14] MEDS ORDERED: Tamsulosin 0.4 MG Cap.ER PO ONE (21:39)
--- NOTE | 2018-02-14 21:51 | EDM.PDOC ---
ED HPI GENERAL MEDICAL PROBLEM - General Chief Complaint: Flank Pain Stated Complaint: LEFT SIDE PAIN Time Seen by Provider: 02/14/18 20:45 Source of Information: Reports: Patient History Limitations: Reports: No Limitations - History of Present Illness INITIAL COMMENTS - FREE TEXT/NARRATIVE: 32-year-old male with sudden onset of left flank pain. This occurred within the last half hour. It's very colicky in nature. He does have a history of kidney stones in the remote past. He is very anxious, diaphoretic and unable to sit still. Onset: Sudden Duration: Hour(s): (Within the past hour) Severity: Moderate Associated Symptoms: Reports: Diaphoresis. Denies: Fever/Chills, Nausea/ Vomiting, Shortness of Breath - Related Data Allergies Allergy/AdvReac Type Severity Reaction Status Date / Time clotrimazole [From Lotrimin] Allergy Mouth Sores Verified 02/14/18 20:51 Home Meds: Home Meds OLANZapine [Olanzapine] 0.5 tab PO BEDTIME 02/14/18 [History] Past Medical History Gastrointestinal History: Reports: Diverticulosis, GERD, Other (See Below) Other Gastrointestinal History: pyloric stenosis,diverticulitis, states he has chrons disease Genitourinary History: Reports: Renal Calculus Neurological History: Reports: Head Trauma, Seizure Psychiatric History: Reports: ADHD, Bipolar Dermatologic History: Reports: Psoriasis - Infectious Disease History Infectious Disease History: Reports: Chicken Pox - Past Surgical History GI Surgical History: Reports: Colonoscopy, EGD, Hernia Repair/Other Male Surgical History: Reports: Kidney Stone Extraction Social & Family History - Family History Family Medical History: Noncontributory - Tobacco Use Smoking Status *Q: Current Every Day Smoker Years of Tobacco use: 10 Packs/Tins Daily: 0.5 Second Hand Smoke Exposure: No - Caffeine Use Caffeine Use: Reports: Soda - Recreational Drug Use Recreational Drug Use: Yes Recreational Drug Type: Reports: Marijuana/Hashish Recreational Drug Use Frequency: Rarely ED ROS GENERAL - Review of Systems Review Of Systems: See Below Constitutional: Denies: Fever, Chills Respiratory: Denies: Shortness of Breath Cardiovascular: Denies: Chest Pain GI/Abdominal: Denies: Abdominal Pain, Nausea : Reports: Flank Pain Skin: Reports: Diaphoresis Psychiatric: Reports: Anxiety ED EXAM, RENAL/ - Physical Exam Exam: See Below Exam Limited By: No Limitations General Appearance: Alert, Moderate Distress Respiratory/Chest: No Respiratory Distress, Lungs Clear Cardiovascular: Regular Rate, Rhythm, Tachycardia GI/Abdominal: Non-Tender Neurological: Alert, Oriented Skin Exam: Diaphoretic Course - Vital Signs Last Recorded V/S: Last Vital Signs Temp 98.6 F 02/14/18 22:09 Pulse 119 H 02/14/18 22:09 Resp 20 02/14/18 22:09 BP 155/90 H 02/14/18 22:09 Pulse Ox 100 02/14/18 22:09 - Orders/Labs/Meds Orders: Active Orders 24 hr Category Date Time Status Abdomen Pelvis wo Cont [CT] Stat Exams 02/14/18 20:51 Taken Meds: Medications Discontinued Medications Generic Name Dose Route Start Last Admin Trade Name Tavares PRN Reason Stop Dose Admin Ketorolac Tromethamine 60 mg 02/14/18 20:51 02/14/18 21:17 Toradol IM 02/14/18 20:52 60 mg ONETIME ONE Administration Tamsulosin HCl 0.4 mg 02/14/18 21:39 02/14/18 21:43 Flomax PO 02/14/18 21:40 0.4 mg ONETIME ONE Administration - Re-Assessments/Exams Free Text/Narrative Re-Assessment/Exam: 02/15/18 18:22 Patient was given 60 mg of Toradol IM, and sent back for an abdominal pelvis CT scan which confirmed a very small very distal left ureteral stone. He was given 0.4 mg of oral Flomax, and by the time the CT report returned he was asymptomatic. He likely passed the stone. Departure - Departure Time of Disposition: 22:10 Disposition: Home, Self-Care 01 Condition: Good Clinical Impression: Ureteric colic, Kidney stone on left side - Discharge Information Instructions: Kidney Stones, [id number] Referrals: PCP,None [Primary Care Provider] - Forms: ED Department Discharge Care Plan Goals: Drink lots of water, stay hydrated and recheck as needed. Take CT scan to any follow-up appointments. - My Orders Last 24 Hours: My Active Orders 02/14/18 20:51 Abdomen Pelvis wo Cont [CT] Stat - Assessment/Plan Last 24 Hours: My Active Orders 02/14/18 20:51 Abdomen Pelvis wo Cont [CT] Stat
[2018-02-14 22:10] VITALS: BP 155/90
== END 2018-02-14 22:10 | disposition home or self-care (01) ==
LOC: JP.ED 20:45
DX: N20.2 Calculus of kidney with calculus of ureter (principal); K57.30 Diverticulosis of large intestine without perforation or abscess without bleeding; I70.0 Atherosclerosis of aorta; Z88.8 Allergy status to other drugs, medicaments and biological substances; F17.210 Nicotine dependence, cigarettes, uncomplicated
CPT/HCPCS: 74176; 96372; 99284; A9270; J1885

== ENCOUNTER 2019-12-03 20:46 | Emergency (ER) | payer MEDICARE, MEDICAID ==
[2019-12-03 20:59] VITALS: BP 125/83; PULSE 112
--- NOTE | 2019-12-03 21:24 | EDM.PDOC ---
ED HPI GENERAL MEDICAL PROBLEM - General Chief Complaint: ENT Problem Stated Complaint: EYES AND THROAT Time Seen by Provider: 12/03/19 21:10 Source of Information: Reports: Patient History Limitations: Reports: No Limitations - History of Present Illness INITIAL COMMENTS - FREE TEXT/NARRATIVE: 33-year-old male with 2 days of respiratory symptoms, sore throat, cough, and today developed a very mattery red eye on the right side. No fevers or ear pain. Denies nausea or vomiting. Onset: Gradual Duration: Day(s): (Over 3 days) Associated Symptoms: Reports: Chest Pain, Cough, Malaise, Other (Some rhinitis and sore throat). Denies: Fever/Chills, Headaches, Nausea/Vomiting bilateral eyes Pain Score (Numeric/FACES): 5 chest pain Pain Score (Numeric/FACES): 3 sore throat Pain Score (Numeric/FACES): 4 - Related Data Allergies Allergy/AdvReac Type Severity Reaction Status Date / Time clotrimazole [From Lotrimin] Allergy Mouth Sores Verified 12/03/19 21:01 diphenhydramine Allergy Other Verified 12/03/19 21:01 [From Benadryl] lorazepam [From Ativan] Allergy Hallucinati Verified 12/03/19 21:01 ons Home Meds: Home Meds Loratadine [Claritin] 10 mg PO DAILY 04/03/18 [History] Meclizine HCl 25 mg PO ASDIRECTED 04/03/18 [History] Past Medical History HEENT History: Reports: Impaired Vision, Other (See Below) Other HEENT History: vertigo, mouth sores Cardiovascular History: Reports: Hypertension Gastrointestinal History: Reports: Chronic Diarrhea, Diverticulosis, GERD, Inflammatory Bowel Disease, Other (See Below) Other Gastrointestinal History: pyloric stenosis,diverticulitis, states he has chrons disease Genitourinary History: Reports: Renal Calculus Musculoskeletal History: Reports: Other (See Below) Other Musculoskeletal History: chronic joint pain Neurological History: Reports: Head Trauma, Seizure Psychiatric History: Reports: Bipolar, Schizophrenia, Suicide Attempt, Other ( See Below) Other Psychiatric History: Schizo active disorder Dermatologic History: Reports: Psoriasis - Infectious Disease History Infectious Disease History: Reports: Chicken Pox - Past Surgical History GI Surgical History: Reports: Colonoscopy, EGD, Hernia Repair/Other Social & Family History - Family History Family Medical History: Noncontributory - Tobacco Use Smoking Status *Q: Current Every Day Smoker Years of Tobacco use: 20 Packs/Tins Daily: 0.5 Second Hand Smoke Exposure: Yes - Caffeine Use Caffeine Use: Reports: None - Recreational Drug Use Recreational Drug Use: No ED ROS ENT - Review of Systems Review Of Systems: See Below Constitutional: Reports: Malaise. Denies: Fever, Chills HEENT: Reports: Rhinitis, Throat Pain, Other ( very reddened, mattery right eye. No foreign body sensation.) Respiratory: Reports: Cough Cardiovascular: Reports: Chest Pain (With coughing) GI/Abdominal: Reports: No Symptoms Skin: Denies: Rash Neurological: Denies: Headache ED EXAM, ENT - Physical Exam Exam: See Below Exam Limited By: No Limitations General Appearance: Alert, No Apparent Distress Eye Exam: Right Eye: Conjunctival Injection (Significant conjunctival injection , erythema and matter formation), Bilateral Eye: EOMI, PERRL Ears: Normal TMs Mouth/Throat: Other (Pharyngeal and tonsillar erythema, no exudate) Head: Atraumatic Neck: No: Lymphadenopathy (R), Lymphadenopathy (L) Respiratory/Chest: No Respiratory Distress, Lungs Clear Neurological: Alert, Oriented Course - Vital Signs Last Recorded V/S: Last Vital Signs Temp 99.1 F 12/03/19 21:03 Pulse 112 H 12/03/19 21:03 Resp 16 12/03/19 21:03 BP 125/83 12/03/19 21:03 Pulse Ox 93 L 12/03/19 21:03 - Orders/Labs/Meds Orders: Active Orders 24 hr Category Date Time Status CULTURE STREP A CONFIRMATION [RM] Routine Lab 12/03/19 21:19 Results STREP SCRN A RAPID W CULT CONF [RM] Routine Lab 12/03/19 21:19 Results - Re-Assessments/Exams Free Text/Narrative Re-Assessment/Exam: 12/03/19 21:25 A rapid strep was obtained, however this is likely viral with a developing bacterial conjunctivitis in the right eye. 12/03/19 21:37 Rapid strep was negative. Patient was instructed to use the eyedrops for 5 days , and the rest of his illness should resolve over time with conservative treatment. If he worsens he can return. Departure - Departure Time of Disposition: 21:47 Disposition: Home, Self-Care 01 Clinical Impression: Bacterial conjunctivitis of right eye, Viral respiratory illness - Discharge Information Instructions: Bacterial Conjunctivitis, [id number], Viral Respiratory Infection, [id number] Referrals: PCP,None [Primary Care Provider] - Forms: ED Department Discharge Care Plan Goals: Use 2 drops in your eyes 4 times a day for 5 days, wash hands frequently and increase diet and activity as tolerated. Cold medicines or throat lozenges should also help. Return if worsening such as increased shortness of breath or persistent high fever, or not improving satisfactorily after 3 or 4 days. Sepsis Event Note - Evaluation Sepsis Screening Result: No Definite Risk - Focused Exam Vital Signs: Vital Signs Temp Pulse Resp BP Pulse Ox 12/03/19 21:03 99.1 F 112 H 16 125/83 93 L 12/03/19 20:58 99.1 F 112 H 16 125/83 93 L Date Exam was Performed: 12/03/19 Time Exam was Performed: 22:35 - My Orders Last 24 Hours: My Active Orders 12/03/19 21:19 CULTURE STREP A CONFIRMATION [RM] Routine STREP SCRN A RAPID W CULT CONF [] Routine - Assessment/Plan Last 24 Hours: My Active Orders 12/03/19 21:19 CULTURE STREP A CONFIRMATION [RM] Routine STREP SCRN A RAPID W CULT CONF [] Routine
== END 2019-12-03 21:45 | disposition home or self-care (01) ==
LOC: JP.ED 20:46
DX: B34.9 Viral infection, unspecified (principal); H10.89 Other conjunctivitis; I10 Essential (primary) hypertension; F17.210 Nicotine dependence, cigarettes, uncomplicated; Z88.8 Allergy status to other drugs, medicaments and biological substances; Z79.899 Other long term (current) drug therapy
CPT/HCPCS: 87081; 87880-QW; 99283

== ENCOUNTER 2023-07-11 03:43 | Emergency (ER) | payer MEDICARE, MEDICAID ==
[2023-07-11] MEDS ORDERED: Naloxone 0.4 MG/ML SDV IVPUSH PRN (03:44)
[2023-07-11] MEDS ORDERED: ceFAZolin 1 GM in Sodium Chloride 0.9% 50 ML IV ONE (03:44)
[2023-07-11] MEDS ORDERED: HYDROmorphone 1 MG/ML Syringe IVPUSH ONE (03:44)
[2023-07-11] MEDS ORDERED: Sodium Chloride 0.9% 10 ML Syringe FLUSH PRN (03:44)
[2023-07-11] MEDS ORDERED: Sodium Chloride 0.9% 1,000 ML IV ONE (03:45)
[2023-07-11] MEDS ORDERED: Diphtheria,Pertussis(Acell),Tetanus Vaccine 0.5 ML Syringe IM ONE (03:46)
[2023-07-11] MEDS ORDERED: Lidocaine 1% with EPINEPHrine 1:100,000 50 ML MDV SUBCUT ONE (03:46)
[2023-07-11 03:53] LABS: BASOPHILS ABSOLUTE AUTO 0.05 K/uL (0.00-0.10); BASOPHILS PERCENT AUTO 0.3 % (0.1-1.3); EOSINOPHILS ABSOLUTE AUTO 0.62 K/uL (0.00-0.40); EOSINOPHILS PERCENT AUTO 4.1 % (0.0-5.4); HEMOGLOBIN 15.6 g/dL (12.9-16.9); IMMATURE GRAN ABSOLUTE AUTO 0.08 K/uL (0.00-0.23); IMMATURE GRAN PERCENT AUTO 0.5 % (0.0-0.7); LYMPHOCYTES PERCENT AUTO 45.2 % (11.4-47.7); MEAN CORPUSCULAR HEMOGLOBIN 29.9 pg (31.6-35.5); MEAN CORPUSCULAR HGB CONC 33.9 g/dL (31.6-35.5); MEAN CORPUSCULAR VOLUME 88.1 fL (81.4-99.0); MONOCYTES ABSOLUTE AUTO 1.13 K/uL (0.20-0.90); MONOCYTES PERCENT AUTO 7.4 % (3.3-12.6); NEUTROPHILS ABSOLUTE AUTO 6.47 K/uL (1.0-7.6); NEUTROPHILS PERCENT AUTO 42.5 % (40.0-78.1); PLATELET COUNT,PLT 268 K/uL (130-375); RED BLOOD CELL COUNT 5.22 M/uL (4.14-5.76); WHITE BLOOD CELL COUNT,WBC 15.3 K/uL (3.2-11.0)
[2023-07-11] MEDS ORDERED: Bacitracin Oint 1 GM U/D Packet TOP ONE (03:53)
[2023-07-11 04:09] LABS: ANION GAP 22.5 mmol/L (5.0-14.0); BLOOD UREA NITROGEN,BUN 14 mg/dL (7-18); CALCIUM 7.9 mg/dL (8.5-10.1); CARBON DIOXIDE,CO2 16 mmol/L (21-32); CHLORIDE,CL 103 mmol/L (100-108); CREATININE 1.5 mg/dL (0.8-1.3); ESTIMATED GFR 61 mL/min (>60); GLUCOSE RANDOM 168 mg/dL (74-106); POTASSIUM,K 3.5 mmol/L (3.6-5.2); SODIUM,NA 138 mmol/L (140-148)
[2023-07-11] MEDS ORDERED: fentaNYL 50 MCG/ML SDV ONE (04:18)
[2023-07-11] MEDS ORDERED: fentaNYL 50 MCG/ML SDV IVPUSH ONE ×3 (04:27→05:45)
[2023-07-11 04:38] VITALS: BP 150/96; PULSE 101
[2023-07-11] MEDS ORDERED: Acetaminophen/HYDROcodone 325-5 MG Tab PO ONE (06:41)
== END 2023-07-11 07:26 | disposition home or self-care (01) ==
LOC: JP.ED 03:43
DX: S41.151A Open bite of right upper arm, initial encounter (principal); S01.85XA Open bite of other part of head, initial encounter; S11.90XA Unspecified open wound of unspecified part of neck, initial encounter; S81.852A Open bite, left lower leg, initial encounter; S81.851A Open bite, right lower leg, initial encounter; S41.152A Open bite of left upper arm, initial encounter; S61.451A Open bite of right hand, initial encounter; S31.159A Open bite of abdominal wall, unspecified quadrant without penetration into peritoneal cavity, initial encounter; I10 Essential (primary) hypertension; W54.0XXA Bitten by dog, initial encounter; Z23 Encounter for immunization; Z88.8 Allergy status to other drugs, medicaments and biological substances
CPT/HCPCS: 12007; 12011; 36415; 73060-26-LT; 73060-LT; 730902650; 73090-50; 73120-26-RT; 73120-RT; 80048; 82550; 85025; 86850; 86900; 86901; 90471; 90715; 96365; 96375; 96376; 99284-25; 99285; A9270-GY; J0690; J1170; J3010; J3490; J7030

== ENCOUNTER 2024-12-05 18:18 | Emergency (ER) | payer MEDICARE, MEDICAID ==
[2024-12-05 19:30] VITALS: BP 124/78; PULSE 81
[2024-12-05 21:39] LABS: HEMOGLOBIN 14.4 g/dL (12.9-16.9); MEAN CORPUSCULAR HEMOGLOBIN 30.3 pg (31.6-35.5); MEAN CORPUSCULAR HGB CONC 34.3 g/dL (31.6-35.5); MEAN CORPUSCULAR VOLUME 88.2 fL (81.4-99.0); RED BLOOD CELL COUNT 4.76 M/uL (4.14-5.76); WHITE BLOOD CELL COUNT,WBC 7.4 K/uL (3.2-11.0)
[2024-12-05 21:45] LABS: APPEARANCE,URINE CLEAR (CLEAR); BILIRUBIN,URINE NEGATIVE (NEGATIVE); COLOR,URINE YELLOW (YELLOW); GLUCOSE,URINE NEGATIVE (NEGATIVE); KETONES,URINE NEGATIVE (NEGATIVE); LEUKOCYTE ESTERASE,URINE NEGATIVE (NEGATIVE); NITRITE,URINE NEGATIVE (NEGATIVE); OCCULT BLOOD,URINE NEGATIVE (NEGATIVE); PROTEIN,URINE NEGATIVE (NEGATIVE); UROBILINOGEN,URINE 0.2 EU/dL (0.2-1.0)
[2024-12-05 21:56] LABS: AMORPHOUS SEDIMENT,URINE NOT SEEN; BACTERIA,URINE RARE; EPITHELIAL CELLS,URINE RARE; MUCUS,URINE NOT SEEN; RBC,URINE 0-5 (0-5); WBC,URINE 0-5 (0-5)
[2024-12-05] MEDS: Iopamidol 612 MG/ML 100 ML Bottle IV ONE (22:09)
[2024-12-05] MEDS: Sodium Chloride 0.9% 80 ML IV SCH (22:09)
== END 2024-12-05 23:19 | disposition home or self-care (01) ==
LOC: JP.ED 18:18
DX: K40.90 Unilateral inguinal hernia, without obstruction or gangrene, not specified as recurrent (principal); I10 Essential (primary) hypertension; Z87.891 Personal history of nicotine dependence; Z88.8 Allergy status to other drugs, medicaments and biological substances
CPT/HCPCS: 36415; 74177; 81001; 85027; 99284; Q9967

== ENCOUNTER 2024-12-16 07:04 | Day surgery (SDC) | payer MEDICARE, MEDICAID ==
[2024-12-16] MEDS ORDERED: Succinylcholine 200 MG/10 ML MDV ONE (07:09)
[2024-12-16] MEDS ORDERED: fentaNYL 250 MCG/5 ML SDV ONE (07:09)
[2024-12-16] MEDS ORDERED: Ondansetron 4 MG/2 ML SDV ONE (07:09)
[2024-12-16] MEDS ORDERED: Rocuronium 50 MG/5 ML Vial ONE (07:09)
[2024-12-16] MEDS ORDERED: Dexamethasone 4 MG/ML SDV ONE (07:09)
[2024-12-16] MEDS ORDERED: Neostigmine Methylsulfate 10 MG/10 ML MDV ONE (07:09)
[2024-12-16] MEDS ORDERED: Glycopyrrolate 0.2 MG/ML 5 ML MDV ONE (07:09)
[2024-12-16] MEDS ORDERED: Propofol 200 MG/20 ML SDV ONE (07:09)
[2024-12-16] MEDS: Lactated Ringers 1,000 ML IV SCH (07:56)
[2024-12-16] MEDS: ceFAZolin 2 GM in Premix Bag 1 BAG IV ONE (08:00)
[2024-12-16] MEDS: Bupivacaine 0.25%/EPINEPHrine 1:200,000 30 ML SDV ONE (08:48)
[2024-12-16] MEDS ORDERED: Lactated Ringers 1,000 ML ONE (09:14)
[2024-12-16] MEDS ORDERED: fentaNYL 100 MCG/2 ML SDV ONE (09:15)
[2024-12-16] MEDS: HYDROmorphone 0.5 MG/0.5 ML Syringe IVPUSH ONE (10:46)
[2024-12-16] MEDS: oxyCODONE 5 MG Tab PO ONE (11:07)
[2024-12-16] MEDS: Ondansetron 4 MG/2 ML SDV IVPUSH ONE (11:31)
[2024-12-16] MEDS: Ketorolac 30 MG/ML SDV IVPUSH ONE (11:31)
[2024-12-16] MEDS: Promethazine 12.5 MG in Sodium Chloride 0.9% 50 ML IV ONE (12:00)
[2024-12-16 12:42] VITALS: BP 118/80; PULSE 79
== END 2024-12-16 12:58 | disposition home or self-care (01) ==
LOC: JP.SDS 07:04
PROVIDERS: ATTEND Surgery
DX: K40.90 Unilateral inguinal hernia, without obstruction or gangrene, not specified as recurrent (principal); K43.9 Ventral hernia without obstruction or gangrene; Z87.891 Personal history of nicotine dependence
CPT/HCPCS: 49591; 49650; A9270; C1781; J0330; J0690; J1100; J1596; J1885; J2405; J2704; J2710; J3010; J7120; J2550; J3490